=== PATIENT | male | born 1995 | race Caucasian/White ===

== ENCOUNTER 2021-07-29 10:21 | Emergency (ER) | payer OTHER, SELFPAY ==
[2021-07-29 10:38] VITALS: BP 140/73; PULSE 80; RESP 18; TEMP 36.6; O2SAT 100
--- NOTE | 2021-07-29 11:09 | ED.LOWEXIN ---
HPI - Extremity Injury (Lower) General Chief Complaint: Extremity Injury, Lower Stated Complaint: lt great toe injury Source: patient and RN notes reviewed Limitations: no limitations History of Present Illness HPI Narrative: The patient, previously on several mood meds, presents with left great toe pain. Patient states he has 1/2-week history of increasing redness at the nail fold insertion after cutting on it. Symptoms are mild, worse when he stubbed his toe last night. No fever, discharge, streaking; patient advised to be given antibiotics and to soak and elevate the nail [per handouts] Related Data Home Medications Medication Instructions Recorded Confirmed methylphenidate HCl 54 mg PO QAM 08/02/19 07/29/21 oxcarbazepine 300 mg PO DAILY 08/02/19 07/29/21 guanfacine 1 mg tablet 1 mg PO BID tablet 10/14/19 07/29/21 lamotrigine 200 mg tablet 200 mg PO .qhs tablet 05/03/20 07/29/21 Allergies Allergy/AdvReac Type Severity Reaction Status Date / Time No Known Allergies Allergy Verified 07/29/21 10:40 Review of Systems Review of Systems: General/Constitutional: No weight loss,fever Eyes: N0: Redness,discharge Ears/Nose/Throat: No: Epistaxis,ear discharge Respiratory: Denies: Hemoptysis Gastrointestinal: No Vomiting, Bleeding-rectal Skin: No Lumps, REPORTS eruption Neurologic: No Focal Weakness,Sz Hematologic: Denies: Petechiae/Purpura Psychiatric: No: Suicida ideationl All Other Systems: Reviewed and Negative [facility] Social History Social History (Updated 04/05/21 @ 14:[address] [facility]) Alcohol intake: never Comments At time of signature, agree with nursing past medical, surgical, social and family history. There is no relevant family history pertinent to the presenting complaint Exam Narrative: General Appearance: Well appearing, Conjunctiva clear Ears: External ear normal, Auditory canal normal Nose: Normal nose, Nares clear Mouth/Throat: Normal appearing, Normal lips, Supple Respiratory: Airway patent, No respiratory distress MS-toe: Normal strength (mostly intact, limited flexion/extension by pain), Tenderness ( laterally, with mild decreased ROM), Swelling (laterally), Other (no anterior drawer, no collateral laxity) Skin: Warm, Dry, redness at nailbed fold Neurological: A&O x3, Normal affect Course Vital Signs Vital signs: Vital Signs Temperature 97.8 F 07/29/21 10:38 Pulse Rate 80 07/29/21 10:38 Respiratory Rate 18 07/29/21 10:38 Blood Pressure 140/73 07/29/21 10:38 Pulse Oximetry 100 07/29/21 10:38 Temperature 97.8 F 07/29/21 10:38 Pulse Rate 80 07/29/21 10:38 Respiratory Rate 18 07/29/21 10:38 Blood Pressure 140/73 07/29/21 10:38 Pulse Oximetry 100 07/29/21 10:38 Discharge Plan Discharge Clinical Impression: Paronychia of toenail of left foot, Ingrowing toenail of left foot Patient Disposition: Home, Self-Care Condition: Stable Instructions: Antibiotic Form, Paronychia (ED) Additional Instructions: Take clindamycin with antacid, probiotic and/or food ; stop if diarrhea occurs Prescriptions: New clindamycin HCl 300 mg capsule 300 mg PO TID Qty: 15 RF: 0 mupirocin 2 % ointment 1 applic TOPICAL TID Qty: 30 RF: 0 No Action methylphenidate HCl 54 mg Tablet Extended Release 24hr 54 mg PO QAM RF: 0 oxcarbazepine 300 mg Tablet Extended Release 24 Hr 300 mg PO DAILY RF: 0 guanfacine 1 mg tablet 1 mg PO BID RF: 0 lamotrigine 200 mg tablet 200 mg PO .qhs RF: 0 Follow-up/Referrals: Rudy Mcdowell MD [Primary Care Provider] -
== END 2021-07-29 11:15 | disposition home or self-care (01) ==
PROVIDERS: Emergency Provider Emergency Medicine; PCP Family Medicine
DX: L03.032 Cellulitis of left toe (principal); L60.0 Ingrowing nail
CPT/HCPCS: 99213; G0463

== ENCOUNTER 2021-09-10 12:53 | Outpatient (CLI) | payer OTHER, SELFPAY ==
--- NOTE | ~2021-09-10 | XR_ITS ---
XR shoulder RT min 2V DATE: 09/10/2021 13:17 INDICATION: Dislocation TECHNIQUE: 4 views COMPARISON: None FINDINGS: No fracture or dislocation, periosteal reaction or bone destruction or abnormal soft tissue calcification IMPRESSION: Negative Reviewed, dictated and finalized at location A. DUSTER IMPRESSION: Negative
== END 2021-09-10 12:54 | disposition home or self-care (01) ==
LOC: ANHIMG 12:58
PROVIDERS: PCP Family Medicine; Visit Provider Family Medicine
DX: S43.006A Unspecified dislocation of unspecified shoulder joint, initial encounter (principal); X58.XXXA Exposure to other specified factors, initial encounter
CPT/HCPCS: 73030

== ENCOUNTER 2021-10-14 11:00 | Outpatient (RCR) | payer OTHER, SELFPAY ==
--- NOTE | 2021-09-16 13:37 | PTOPEVAL ---
Thank you for referring Linwood Cade to [facility].? The patient is scheduled to be seen for therapy? 1 x/week for 8 weeks. Please review, sign, date and return this plan of care AMRITA. I agree with and certify that the following plan of care is medically necessary. Referring Physician Date Attending Provider: Augustin Vargas MD Diagnosis right shoulder instability. Onset chronic Additional Evaluation Detail studying EMR course. 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 Subjective Information He had increased pain with Query Text:As Reported By Patient/ lifting heavy objects. He c/o Family instability of the shoulder and feeling of the shoulder sliding out of socket. He has had the issue for 10 years. He denies any sports or resistance training in the past. He spends most of his day reading, watching TV, playing video games. He did go to the gym prior to Apr 13. Pain Assessment Right Shoulder(s) Reported Pain Level 0 Lowest Pain Intensity 0 Greatest Pain Intensity 2 Pain Aggravating Factors Lifting Upper Extremity Range of Motion General Upper Extremity Range of Motion Reason Not Measured WNL/Left,WNL/Right Scapular/ Shoulder Range of Motion Right Reason Not Measured WNL/Right Shoulder Medial Rotation - Active T6:Reach Behind the Back Shoulder Lateral Rotation - Active T3:Reach Behind the Head Upper Extremity Muscle Strength Testing General Upper Extremity Strength Gross Upper Extremity Strength Comments grossly 5/5 annette shoulder except right shoulder flex: 4/ 5, ext rotation: 4/5, abd: 4+/ 5 middle 3-/5 and lower trap scap stability: 2+/5 serratus ant: 3-/5 Muscle Length Testing Muscle Length Testing Latissmus Dorsi Muscle Length (R) Moderate Tightness,(L) Moderate Tightness Pectoralis Major Muscle Length (R) Moderate Tightness,(L) Moderate Tightness Pectoralis Minor Muscle Length (R) Severe Tightness,(L) Severe Tightness Posture Standing Position Head/C-Spine Posture Forward Head Thoracic Spine Posture Flattened Lumbar Spine Posture Flattened Shoulder Posture (L) Rounded,(R) Rounded,(L) Forward,(R) Forward Scapula Posture
--- NOTE | 2021-09-26 13:39 | PCPTNOTE ---
Patient did not show up for scheduled appointment this date. Called patient and he stated he called this morning to cancel, but the message said we were closed.
--- NOTE | 2021-10-14 11:58 | PTOPEVAL ---
Physical Therapy Discharge Summary Thank you for referring Linwood Cade to [facility].?Linwood has attended 4 therapy visits with 1 missed visit to address his chronic shoulder limitations. He demonstrates compliance with his HEP and demonstrates understanding of strengthening program and proper posture with daily task and resistance training. He has reached maximal potential with skilled therapy services at this time. Will DC skilled PT services. Please review, sign, date and return this discharge summary AMRITA. I agree with and certify that the following plan of care is medically necessary. Referring Physician Date Attending Provider: Augustin Vargas MD Problem Diagnosis right shoulder instability. Onset chronic Additional Evaluation Detail studying EMR course. 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 Subjective Information States he continues to have Query Text:As Reported By Patient/ difficulty with reading for Family class due to continued poor posture. Denies any increased pain with sleeping on right side. Denies any limitation with lifting heavy objects. He has been able to lift weights at the gym without limitations. His only increased pain occurs when lifting poorly. Pain Assessment Self Report Pain Assessment Right Shoulder(s) Reported Pain Level 0 Lowest Pain Intensity 0 Greatest Pain Intensity 1 Pain Aggravating Factors Lifting Upper Extremity Muscle Strength Testing General Upper Extremity Strength Gross Upper Extremity Strength Comments grossly 5/5 annette shoulder except right shoulder flex: 4/ 5, ext rotation: 4+/5, abd: 4+ /5 no pain with resistance, poor GH/scap position with resistance. middle 3+/5 and lower trap scap stability: 3+/5, serratus ant: 3+/5 Posture Standing Position Head/C-Spine Posture Forward Head Thoracic Spine Posture Flattened Lumbar Spine Posture Flattened Shoulder Posture (L) Rounded,(R) Rounded,(L) Forward,(R) Forward Scapula Posture (L) Protracted,(R) Protracted, (L) Depressed,(R) Depressed,(L ) Tipped,(R) Tipped Arm Posture (L) Internally Rotated,(R) Internally Rotated PT Clinical Summary Pt referred to therapy due to
== END 2021-10-14 16:49 | disposition home or self-care (01) ==
LOC: ANHPT 11:00
PROVIDERS: PCP Family Medicine; Visit Provider Orthopaedic Surgery
DX: M25.511 Pain in right shoulder (principal)
CPT/HCPCS: 97110; 97161

== ENCOUNTER 2021-12-20 11:37 | Emergency (ER) | payer OTHER, SELFPAY ==
--- NOTE | ~2021-12-20 | XR_ITS ---
EXAMINATION: XR chest 2V DATE: 12/20/2021 13:06 INDICATION: Chest pain TECHNIQUE: PA and lateral views of the chest are obtained. COMPARISON: 12/24/2011 FINDINGS: The lungs are free of acute opacities. There is no pleural effusion or pneumothorax. The ca rdiomediastinal silhouette is normal. The visualized bones and soft tissues are unremarkable. IMPRESSION: 1. No acute cardiopulmonary abnormality. Reviewed, dictated and finalized at location B.
[2021-12-20 12:16] VITALS: BP 127/84; PULSE 97; RESP 18; TEMP 36.6; O2SAT 100
--- NOTE | 2021-12-20 12:26 | ECG_ITS ---
Measurements Intervals [place] Rate: 87 P: 46 AR: 172 QRS: 60 QRSD: 106 T: 29 QT: 318 QTc: 384 Interpretive Statements SINUS RHYTHM POSSIBLE RIGHT VENTRICULAR CONDUCTION DELAY [RSR (QR) IN V1/V2] BORDERLINE ECG NO PREVIOUS ECG AVAILABLE FOR COMPARISON Electronically Signed On 12-20-2021 12:53:39 CDT by Sushant Ruby M.D.
--- NOTE | 2021-12-20 12:50 | ED.CHESTPAIN ---
HPI - Chest Pain General Chief Complaint: Chest Pain Stated Complaint: chest pain Source: patient Mode of arrival: ambulatory Limitations: no limitations History of Present Illness HPI narrative: 26-year-old male presents to [facility] with complaints of right upper chest pains with inspiration for the past hour; patient reports that he also has intermittent shortness of breath. Patient is a non-smoker. Patient reports his pain a current 3 out of 10. Patient describes the pain as sharp. Patient denies headache, dizziness, blurred vision. MD complaint: chest pain Onset (ago): hour(s) (3) Pain location: right chest Pain radiation: none Quality: sharp Treatment prior to arrival: none Related Data Home Medications Medication Instructions Recorded Confirmed methylphenidate HCl 54 mg PO QAM 08/02/19 12/20/21 oxcarbazepine 300 mg PO DAILY 08/02/19 12/20/21 guanfacine 1 mg tablet 1 mg PO BID tablet 10/14/19 12/20/21 lamotrigine 200 mg tablet 200 mg PO .qhs tablet 05/03/20 12/20/21 Allergies Allergy/AdvReac Type Severity Reaction Status Date / Time No Known Allergies Allergy Verified 12/20/21 12:34 Review of Systems Constitutional: Constitutional: Denies chills, Denies fever(s) and Denies weakness ENT: Denies epistaxis and Denies sore throat Cardiovascular: Cardiovascular: Reports chest pain, Denies rapid heart rate, Denies radiating jaw, neck or arm pain and Denies slow heart rate Respiratory: Respiratory: Denies chest congestion, Denies cough, Denies dyspnea and Denies wheezing Gastrointestinal: Gastrointestinal: Denies abdominal pain, Denies diarrhea, Denies nausea and Denies vomiting Integumentary/Breasts: Skin/Breast: Denies rash Neurologic: Denies dizziness PMF Past Medical History Medical History Asthma 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 There is no relevant family history pertinent to the presenting complaint. Exam Const: General: no acute distress Nutritional Appearance: well nourished Orientation/consciousness: patient oriented x3 Neck: Neck: normal visual inspection Chest: Chest palpation & inspection: normal inspection of the chest Resp: Effort & Inspection: normal respiratory effort, not labored and not tachypneic Auscultation: clear to auscultation bilaterally Cardio: Rate: regular rate, not bradycardic and not tachycardic Rhythm: regular rhythm and regular rhythm Heart sounds: no murmurs Skin: General skin exam: normal color Rashes: no rashes Wounds: no wounds Neuro: General: patient oriented x3 and moves all extremities Speech: normal speech Psych: Mental Status: mental status grossly normal Affect: normal affect Attitude: cooperative Thought content: Yes Normal thought content present Course Course Level of Care: Express Care Visit Vital Signs Vital signs: Vital Signs Temperature 36.6 C 12/20/21 12:16 Pulse Rate 97 12/20/21 12:16 Respiratory Rate 18 12/20/21 12:16 Blood Pressure 127/84 12/20/21 12:16 Pulse Oximetry 100 12/20/21 12:16 Temperature 36.6 C 12/20/21 12:16 Pulse Rate 97 12/20/21 12:16 Respiratory Rate 18 12/20/21 12:16 Blood Pressure 127/84 12/20/21 12:16 Pulse Oximetry 100 12/20/21 12:16 MDM - Chest Pain MDM Narrative Medical decision making narrative: Due to symptoms, patient was referred to local emergency room for cardiac evaluation and further work-up. Patient refuses ER evaluation at this time reports that he has a upcoming appointment with his primary care provider. Risks of not going emergency august
== END 2021-12-20 13:18 | disposition left against medical advice (07) ==
PROVIDERS: Emergency Provider Nurse Practitioner Family; PCP Family Medicine
DX: R07.1 Chest pain on breathing (principal)
CPT/HCPCS: 71046; 93005; 99213; G0463

== ENCOUNTER 2022-05-11 10:46 | Emergency (ER) | payer OTHER, SELFPAY ==
[2022-05-11 10:58] VITALS: BP 135/92; PULSE 91; RESP 18; TEMP 36.3; O2SAT 100
--- NOTE | 2022-05-11 11:29 | ED.URI ---
HPI - URI/Sore Throat General Chief Complaint: Upper Respiratory Infection Stated Complaint: cold symptoms Source: patient History of Present Illness HPI Narrative: 27-year-old male presents to [facility] with complaints of 1 to 2-month history of sinus pressure. Patient reports he then started with sore throat, nasal congestion, runny nose for the past 4 to 5 days. Patient has been taking [id number] Mucinex, Sudafed and NyQuil with minimal relief. Patient is a non-smoker. Patient denies sick contacts. Patient denies recent travel. Patient reports that he felt like he had a fever yesterday but not check his temperature at that time MD elicited complaint: sore throat, rhinorrhea, nasal congestion and sinus pain Onset (ago): day(s) (4) Able to tolerate fluids by mouth: Yes Treatments prior to arrival: cold medicine Related Data Home Medications Medication Instructions Recorded Confirmed methylphenidate HCl 54 mg 54 mg PO QAM 08/02/19 05/11/22 tablet,extended release 24 hr oxcarbazepine 300 mg 300 mg PO DAILY 08/02/19 05/11/22 tablet,extended release 24 hr guanfacine 1 mg tablet 1 mg PO BID 10/14/19 05/11/22 lamotrigine 200 mg tablet 200 mg PO .qhs 05/03/20 05/11/22 Allergies Allergy/AdvReac Type Severity Reaction Status Date / Time No Known Allergies Allergy Verified 05/11/22 11:23 Review of Systems Constitutional: Constitutional: Denies chills, Denies fatigue and Reports fever(s) ENT: Denies vertigo, Denies dizziness and Reports sore throat Comments: Nasal congestion, runny nose, sinus pressure Cardiovascular: Cardiovascular: Denies chest pain Respiratory: Respiratory: Denies chest congestion, Denies cough, Denies dyspnea and Denies wheezing Integumentary/Breasts: Skin/Breast: Denies rash Neurologic: Denies vertigo and Denies dizziness PMF Past Medical History Medical History Asthma 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 There is no relevant family history pertinent to the presenting complaint. Exam Const: General: healthy appearing Nutritional Appearance: well nourished Orientation/consciousness: patient oriented x3 Limitations: no limitations HENMT: Ears: external ears normal General nose exam: Normal external nose present Face and sinus: sinus tenderness frontal Mouth: Yes Normal oral and palatal mucosa present and Yes lip normal Throat: posterior oropharynx normal and uvula midline Other: Moderate amount of nasal congestion noted with minimal amount of clear nasal drainage noted. Eyes: Conjunctivae: conjunctivae normal Neck: Neck: normal visual inspection Resp: Effort & Inspection: normal respiratory effort and not labored Auscultation: clear to auscultation bilaterally and no crackles Cardio: Rate: regular rate Rhythm: regular rhythm Heart sounds: no murmurs Skin: General skin exam: normal color Rashes: no rashes Wounds: no wounds Neuro: General: patient oriented x3 Speech: normal speech Gait exam (Neuro): Normal gait present Psych: Mental Status: mental status grossly normal Affect: normal affect Attitude: cooperative Course Course Level of Care: Express Care Visit Vital Signs Vital signs: Vital Signs Temperature 36.3 C L 05/11/22 10:58 Pulse Rate 91 05/11/22 10:58 Respiratory Rate 18 05/11/22 10:58 Blood Pressure 135/92 H 05/11/22 10:58 Pulse Oximetry 100 05/11/22 10:58 Oxygen Delivery Room Air 05/11/22 10:58 Temperature 36.3 C L 05/11/22 10:58 Pulse Rate 91 05/11/22 10:58 Respiratory Rate 18 05/11/22 10:58 Blood
== END 2022-05-11 11:45 | disposition home or self-care (01) ==
PROVIDERS: Emergency Provider Nurse Practitioner Family; PCP Family Medicine
DX: J32.9 Chronic sinusitis, unspecified (principal); J45.909 Unspecified asthma, uncomplicated
CPT/HCPCS: 87081; 87880; 99213; G0463

== ENCOUNTER 2022-06-18 11:52 | Emergency (ER) | payer OTHER, SELFPAY ==
[2022-06-18 12:05] VITALS: BP 147/87; PULSE 81; RESP 18; TEMP 36.7; O2SAT 100
--- NOTE | 2022-06-18 14:21 | ED.URI ---
HPI - URI/Sore Throat General Chief Complaint: Upper Respiratory Infection Stated Complaint: Headache Source: patient Mode of arrival: ambulatory History of Present Illness HPI Narrative: This is a 27-year-old male who presented to urgent care with complaints of a headache and fever that started on Thursday patient notes that he took Tylenol for his fever. He notes that today he felt fevers and took his temperature was 99.9? he also notes that he felt dizzy but he relates that his vertigo. Patient notes that when he is ill he develops dizziness vertigo The patient denies SOB, CP, palpitation, extremity numbness, lightheadedness, constipation, diarrhea, chills, Related Data Allergies Allergy/AdvReac Type Severity Reaction Status Date / Time No Known Allergies Allergy Verified 06/18/22 13:12 Review of Systems Review of Systems: A 14 organ system Review of Systems was performed and pertinent positives included in the HPI, otherwise remaining ROS is negative. 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 HEAD: normocephalic, atraumatic. EYES: PERRL. Sclera clear/white. Vision is grossly intact. EARS: External ears normal, auditory canals clear and without drainage, TMs normal without perforation. Hearing grossly intact. NOSE: External nose normal with no obvious nasal discharge, nares without redness, no rhinorrhea. THROAT: Mucous membranes moist, posterior pharynx edematous with erythema white patches and tonsil enlargement with stones. NECK: Neck supple, non-tender without lymphadenopathy, masses or thyromegaly. CARDIOVASCULAR: Regular rate and rhythm without murmurs, gallops, or rubs. RESPIRATORY: Clear to auscultation. Breath sounds equal bilaterally. No wheezes, rales, or rhonchi. GASTROINTESTINAL: Abdomen soft, non-tender, nondistended. Bowel sounds are active. No hepato-splenomegaly, or palpable masses. No guarding. SKIN: warm, intact with no suspicious lesions or rash, good texture and turgor. NEURO: awake, alert, and oriented to person, place and time. There were no obvious focal neurologic abnormalities. EXTREMITIES: Normal range of motion. No edema. No calf tenderness. Course Course Emergency Course: Patient treated for pharyngitis with Augmentin Level of Care: Express Care Visit Vital Signs Vital signs: Vital Signs Temperature 98.0 F 06/18/22 12:05 Pulse Rate 81 06/18/22 12:05 Respiratory Rate 18 06/18/22 12:05 Blood Pressure 147/87 H 06/18/22 12:05 Pulse Oximetry 100 06/18/22 12:05 Oxygen Delivery Room Air 06/18/22 12:05 Temperature 98.0 F 06/18/22 12:05 Pulse Rate 81 06/18/22 12:05 Respiratory Rate 18 06/18/22 12:05 Blood Pressure 147/87 H 06/18/22 12:05 Pulse Oximetry 100 06/18/22 12:05 Oxygen Delivery Room Air 06/18/22 12:05 MDM - URI/Sore Throat Lab Data Labs: Lab Results 06/18/22 Range/Units 13:20 POC SARS CoV-2 Ag Negative (Negative) Influenza A Screen Negative Reference Range: Negative Influenza B Screen Negative Reference Range: Negative Strep Screen Presumptive Negative *(Reference Range: Negative)* Discharge Plan Discharge Clinical Impression: Pharyngitis Patient Disposition: Home, Self-Care Condition: Stable Instructions: Antibiotic Form, Pharyngitis (ED) Additional Instructions: Follow-up
== END 2022-06-18 14:30 | disposition home or self-care (01) ==
PROVIDERS: Emergency Provider Nurse Practitioner; PCP Family Medicine
DX: J02.9 Acute pharyngitis, unspecified (principal); Z20.822 Contact with and (suspected) exposure to COVID-19; J45.909 Unspecified asthma, uncomplicated
CPT/HCPCS: 87081; 87426; 87804; 87880; 99213; C9803; G0463

== ENCOUNTER 2022-08-16 10:54 | Emergency (ER) | payer OTHER, SELFPAY ==
--- NOTE | 2022-08-16 10:58 | ED.URI ---
HPI - URI/Sore Throat General Chief Complaint: Upper Respiratory Infection Stated Complaint: Cough,Congestion,Sore Throat Time Seen by Provider: 08/16/22 11:52 Source: patient and RN notes reviewed Mode of arrival: ambulatory Limitations: no limitations History of Present Illness HPI Narrative: 47-year-old male presents with concern for 7 day history of cough. He reports he is exposed influenza, several days later he began having symptoms which include fever. Reports was is symptoms are improving. The cough seems to be getting worse. Reports he has been taking multiple [id number] medications without relief MD elicited complaint: cough Related Data Home Medications Medication Instructions Recorded Confirmed guanfacine 1 mg tablet 1 mg PO DAILY 06/18/22 07/08/22 methylphenidate HCl 54 mg 54 mg PO DAILY 06/18/22 08/16/22 tablet,extended release 24 hr oxcarbazepine 300 mg tablet 300 mg PO DAILY 06/18/22 08/16/22 lamotrigine 200 mg tablet 200 mg PO DAILY 07/03/22 08/16/22 Allergies Allergy/AdvReac Type Severity Reaction Status Date / Time No Known Allergies Allergy Verified 07/07/22 15:31 Review of Systems Review of Systems: CONSTITUTIONAL: Denies malaise, chills, sweats, or fever. EYES: Denies visual changes, redness, or discharge. ENT: Reports rhinorrhea, congestion. Denies sinus pain, otalgia and sore throat. CARDIOVASCULAR: Denies chest pain, palpitations, or edema. RESPIRATORY: Reports persistent cough. Denies dyspnea. GASTROINTESTINAL: Denies abdominal pain, nausea, vomiting, diarrhea SKIN: Denies rash or itching. MUSCULOSKELETAL: Denies myalgia. NEUROLOGIC: Denies headache. 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 There is no relevant family history pertinent to the presenting complaint Exam Narrative: GENERAL: Well-appearing, well-nourished, and in no acute distress. HEAD: Normocephalic EYES: PERRLA, conjunctivae clear ENT: Nares clear, turbinates edematous and erythematous, clear discharge. Mucous membranes moist. TM pearly guadalupe with sharp light reflex bilaterally; no tragal tenderness. Oropharynx not erythematous without lesions. Tonsils not enlarged and without exudate, no drooling, no hoarseness, no trismus, uvula midline. NECK: Supple. No lymphadenopathy CHEST: Clear to auscultation, breath sounds equal. No wheezing, rhonchi, rales, or stridor. No respiratory distress, speaks in full sentences. HEART: Regular rate and rhythm. No murmur heard. SKIN: Warm, dry, no rash. NEURO: Alert and oriented x3. PSYCH: Normal mood and affect Course Course Emergency Course: Patient is aware of diagnosis, understands and agrees to treatment plan. Anticipatory guidance given. Patient agrees to follow-up as directed and is aware of reasons to seek care at the emergency department. Portions of this record may have been created with voice recognition software Level of Care: Express Care Visit Vital Signs Vital signs: Reviewed. MDM - URI/Sore Throat MDM Narrative Medical decision making narrative: Differential diagnosis considered: Vasquez virus, strep pharyngitis, allergic rhinitis, upper respiratory tract infection, sinusitis, rhinosinusitis, nasopharyngitis. viral pharyngitis, otitis media, otitis externa, pneumonia, bronchitis, viral cough syndrome, viral syndrome, and influenza. Exam findings show no acute concerns or changes; patient is non-toxic appearing and is in no distres
[2022-08-16 11:08] VITALS: BP 130/82; PULSE 82; RESP 18; TEMP 36.4; O2SAT 100
== END 2022-08-16 12:09 | disposition home or self-care (01) ==
PROVIDERS: Emergency Provider Nurse Practitioner; PCP Family Medicine
DX: J40 Bronchitis, not specified as acute or chronic (principal); J45.909 Unspecified asthma, uncomplicated
CPT/HCPCS: 99213; G0463

== ENCOUNTER 2023-08-22 09:19 | Emergency (ER) | payer OTHER, SELFPAY ==
[2023-08-22 09:29] VITALS: BP 138/82; PULSE 100; RESP 16; TEMP 36.6; O2SAT 100
--- NOTE | 2023-08-22 09:57 | ED.URI ---
HPI - URI/Sore Throat General Chief Complaint: Upper Respiratory Infection Stated Complaint: sore throat Time Seen by Provider: 08/22/23 09:47 Source: patient and RN notes reviewed Mode of arrival: ambulatory Limitations: no limitations History of Present Illness HPI Narrative: Patient presents today complaining sore and scratchy throat since last night with postnasal drip x2 months. Denies any additional symptoms. Currently rates pain 2/10 and has been using cough drops with mild relief. States he was on amoxicillin starting July 31, but cannot say what was for. Related Data Home Medications Medication Instructions Recorded Confirmed guanfacine 1 mg tablet 1 mg PO DAILY 06/18/22 08/22/23 methylphenidate HCl 54 mg 54 mg PO DAILY 06/18/22 08/22/23 tablet,extended release 24 hr oxcarbazepine 300 mg tablet 300 mg PO DAILY 06/18/22 08/22/23 lamotrigine 200 mg tablet 200 mg PO DAILY 07/03/22 08/22/23 Allergies Allergy/AdvReac Type Severity Reaction Status Date / Time No Known Allergies Allergy Verified 08/22/23 09:31 Review of Systems Review of Systems: CONSTITUTIONAL: Denies body aches, fever, chills, or sweats. EYES: Denies visual changes, redness, or discharge. ENT: Denies rhinorrhea, congestion, or otalgia.+ sore throat, postnasal drip CARDIOVASCULAR: Denies chest pain, palpitations, or edema. RESPIRATORY: Denies cough or dyspnea. GASTROINTESTINAL: Denies abdominal pain, nausea, vomiting, or diarrhea. GENITOURINARY: Denies dysuria or hematuria. SKIN: Denies rash, itching, or wounds. MUSCULOSKELETAL: Denies back pain, joint pain, or myalgia. NEUROLOGIC: Denies headache, numbness, tingling, or weakness. PSYCH: Denies depression or anxiety. 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 Please see nursing chart for further information. There is no relevant family history pertinent to the presenting complaint Exam Narrative: GENERAL: Well-appearing, well-nourished, and in no acute distress. HEAD: Normocephalic, atraumatic. EYES: EOMI. No redness or drainage. Conjunctivae normal. ENT: Mucous membranes pink and moist. Nares clear. No rhinorrhea. TMs normal bilaterally. Throat erythematous posteriorly without edema or exudate. Uvula midline. NECK: Normal AROM. Supple. No lymphadenopathy. CHEST: No respiratory distress. Clear to auscultation. HEART: Regular rate and rhythm. No murmur appreciated. EXTREMITIES: Normal range of motion. No edema. SKIN: Warm, dry, no rash. Capillary refill normal. Normal skin turgor. NEURO: No focal deficits. Alert and oriented x3. Gait steady. PSYCH: Normal affect. No signs of depression or anxiety. Course Course Level of Care: Express Care Visit Vital Signs Vital signs: Vital Signs Temperature 97.9 F 08/22/23 09:29 Pulse Rate 100 08/22/23 09:29 Respiratory Rate 16 08/22/23 09:29 Blood Pressure 138/82 08/22/23 09:29 Pulse Oximetry 100 08/22/23 09:29 Oxygen Delivery Room Air 08/22/23 09:29 Temperature 97.9 F 08/22/23 09:29 Pulse Rate 100 08/22/23 09:29 Respiratory Rate 16 08/22/23 09:29 Blood Pressure 138/82 08/22/23 09:29 Pulse Oximetry 100 08/22/23 09:29 Oxygen Delivery Room Air 08/22/23 09:29 Reviewed MDM - URI/Sore Throat MDM Narrative Medical decision making narrative: Rapid strep negative. Culture pending. Symptoms likely viral. Discussed [id number] treatment and PCP follow-up. Anticipa
== END 2023-08-22 10:06 | disposition home or self-care (01) ==
PROVIDERS: Emergency Provider Nurse Practitioner; PCP Family Medicine
DX: J02.9 Acute pharyngitis, unspecified (principal); J45.909 Unspecified asthma, uncomplicated
CPT/HCPCS: 87081; 87880; 99213; G0463

== ENCOUNTER 2024-07-21 09:35 | Emergency (ER) | payer OTHER, SELFPAY ==
[2024-07-21 09:42] VITALS: BP 134/98; PULSE 89; RESP 18; TEMP 36.9; O2SAT 99
--- NOTE | 2024-07-21 09:48 | ED.URI ---
HPI - URI/Sore Throat General Chief Complaint: Upper Respiratory Infection Stated Complaint: sore throat Time Seen by Provider: 07/21/24 09:39 History of Present Illness HPI Narrative: 29-year-old male presents to the emergency department for sore throat since 3:00 a.m.. He reports redness and swelling to his throat. He has been using throat lozenges with some improvement. He reports nasal congestion. Denies fever, cough, shortness of breath, otalgia. Denies sick contacts. Related Data Home Medications Medication Instructions Recorded Confirmed guanfacine 1 mg tablet 1 mg PO DAILY 06/18/22 09/17/23 methylphenidate HCl 54 mg 54 mg PO DAILY 06/18/22 09/17/23 tablet,extended release 24 hr oxcarbazepine 300 mg tablet 300 mg PO DAILY 06/18/22 09/17/23 lamotrigine 200 mg tablet 200 mg PO DAILY 07/03/22 09/17/23 Allergies Allergy/AdvReac Type Severity Reaction Status Date / Time No Known Allergies Allergy Verified 07/21/24 09:37 Review of Systems Review of Systems: All systems reviewed & are unremarkable except as noted in HPI and below PMFSH Past Medical History Medical History Asthma 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 HEAD: Normocephalic, atraumatic. EYES: PERRLA and EOMI. ENT: Nares clear, no rhinorrhea or epistaxis. Mucous membranes moist. Erythema to posterior pharynx. No tonsillar hypertrophy or exudates. Uvula is midline. Patient is tolerating secretions, no trismus. Bilateral TMs are guadalupe nonbulging with normal canals. NECK: Supple. CHEST: Clear to auscultation. No respiratory distress. HEART: Regular rate and rhythm. No murmur heard. Normal peripheral pulses. EXTREMITIES: Normal range of motion. No edema. SKIN: Warm, dry, no rash. NEURO: No focal deficits. Alert and oriented x3 Course Vital Signs Vital signs: Vital Signs Temperature 98.5 F 07/21/24 09:42 Pulse Rate 89 07/21/24 09:42 Respiratory Rate 18 07/21/24 09:42 Blood Pressure 134/98 H 07/21/24 09:42 Pulse Oximetry 99 07/21/24 09:42 Oxygen Delivery Room Air 07/21/24 09:42 Temperature 98.5 F 07/21/24 09:42 Pulse Rate 89 07/21/24 09:42 Respiratory Rate 18 07/21/24 09:42 Blood Pressure 134/98 H 07/21/24 09:42 Pulse Oximetry 99 07/21/24 09:42 Oxygen Delivery Room Air 07/21/24 09:42 MDM - URI/Sore Throat MDM Narrative Medical decision making narrative: 29-year-old male presents emergency department for sore throat and nasal congestion since 3:00 a.m. this morning. Triage vitals with elevated blood pressure, otherwise unremarkable. He is afebrile nontoxic appearing. Exam is significant for erythema posterior pharynx. There is no tonsillar hypertrophy or exudates, uvula is midline. There is no trismus. No findings concerning for OUTPATIENT PHLEBOTOMIST. COVID, flu, RSV, strep and mono test are negative. Presentation consistent with viral pharyngitis. Patient was given IM Decadron and scripts were sent for ibuprofen. Encouraged increased fluid intake and close follow-up with PCP. Strict ED return precautions discussed. He is agreeable to plan verbalized understanding. Discharged in stable condition. Lab Data Labs: Lab Results 07/21/24 Range/Units 10:03 Monoscreen Negative (Negative) Influenza A (RT-PCR) Negative (Negative) Influenza B (RT-PCR) Negative (Negative) RSV (RT-PCR) Negative (Negative) SARS-CoV-2 RNA (RT-PCR) Negative (Negative) Group A Strep (PCR) Not detected (Negative) Discharge Plan Discharge Clinical Impression: Acute viral pharyngitis Patient Disposition: Home, Self-Care Condition: Stable Instructions: Antibiotic Form, Pharyngitis (ED) Additional Instructions: You were evaluated in the emergency department for a sore throat. COVID, flu, RSV, mono and strep are negative. Please take Tylenol ibuprofen as needed for pain. Drink plenty of fluids. Follow up with her primary care provider. Return to the emergency department if you develop a fever, difficulty swallowing or breathing, or other concerning symptoms. Prescriptions: New ibuprofen 800 mg tablet 800 mg PO TID PRN (Reason: pain) Qty: 20 0RF No Action methylphenidate HCl 54 mg tablet extended release 24hr 54 mg PO DAILY oxcarbazepine 300 mg tablet 300 mg PO DAILY guanfacine 1 mg tablet 1 mg PO DAILY lamotrigine 200 mg tablet 200 mg PO DAILY methylprednisolone [Medrol (Marshal)] 4 mg tablets,dose pack See Rx Instructions .ROUTE .COMPLEX Qty: 21 0RF Rx Instructions: orally per package directions fluticasone propionate [Flonase Allergy Relief] 50 mcg/actuation spray,suspension 2 spray intranasal DAILY Qty: 50 0RF Rx Instructions: administer into each nostril Follow-up/Referrals: Wendi Mondragon MD [Primary Care Provider] -
[2024-07-21 10:34] LABS: Strep Group A RT-PCR NOT DETECTED (Negative)
[2024-07-21 10:40] LABS: Monoscreen Negative (Negative); Negative Monotest Control Negative (Negative); Positive Monotest Control Positive (Positive)
[2024-07-21 10:45] LABS: Influenza A QL RT-PCR Negative (Negative); Influenza B QL RT-PCR Negative (Negative); RSV RNA, RT-PCR Negative (Negative); SARS-CoV-2 RNA PCR Negative (Negative)
[2024-07-21] MEDS: dexAMETHasone SOD PHOS INJ 10 MG/ML 1 ML VIAL IM (11:00)
== END 2024-07-21 11:12 | disposition home or self-care (01) ==
PROVIDERS: Emergency Provider Physician Assistant; PCP Family Medicine
DX: J02.9 Acute pharyngitis, unspecified (principal); Z20.822 Contact with and (suspected) exposure to COVID-19; J45.909 Unspecified asthma, uncomplicated
CPT/HCPCS: 36415; 86308; 87637; 87651; 96372; 99283; J1100

== ENCOUNTER 2024-10-09 10:36 | Emergency (ER) | payer OTHER, SELFPAY ==
--- NOTE | ~2024-10-09 | XR_ITS ---
CHEST RADIOGRAPH, PA AND LATERAL CLINICAL HISTORY: chest pain . COMPARISON: 12/20/2021 TECHNIQUE: PA and lateral views of the chest. FINDINGS The cardiomediastinal silhouette is unremarkable. The lungs are clear. Visualized osseous structures and soft tissues are unremarkable. IMPRESSION: No focal infiltrate or effusion. Reviewed, dictated and finalized at location A. RIAL EXPEDITOR
--- NOTE | 2024-10-09 10:38 | ECG_ITS ---
Test Date: 2024-10-09 10:51:02 Measurements Intervals [place] Rate: 82 P: 35 ND: 171 QRS: 52 QRSD: 98 T: 44 QT: 325 QTc: 381 Interpretive Statements SINUS RHYTHM INCOMPLETE RIGHT BUNDLE BRANCH BLOCK BASELINE ARTIFACT- I, II, III, AVR, AVL BORDERLINE ECG No previous ECG available for comparison Electronically Signed On 10-09-2024 15:33:02 [employer] BI DEVELOPER by Brandt Washburn D.O.
--- OUTSIDE RECORDS SUMMARY | 2024-10-09 10:39 | XMS_ITS | Continuity of Care Document ---
Author Organization 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 Name Role Phone Hellen Moore Unavailable Unavailable Procedures Procedure Date Office/outpatient Visit, Est Eye Exam, New Patient Advance Directives Directive Yes / No Effective Date File Name No Information Encounters Encounter Description Practice Location Reason(s) For Visit Diagnoses Date Provider Providers Copied on Encounter Office/outpat ient Visit, Est [facility], [address] [place] [address] [address], [place], [place], [id number], tel:[phone] [facility] No Information 9 Teresa Lobato [address] , [address], [place], [place], [facility], [place]. tel:[phone] [facility], [address] [place] [address] [address], [place], [place], [id number], tel:[phone] [facility] No Information 7 Teresa Macedo. [address] , [address], [place], [place], [facility], [place]. tel:[phone] Family History Family Member Type Diagnosis Age At Onset No Information Payers Payer name Insurance type Covered constitution party ID Authoriza tion(s) No Information Social History [...]
--- OUTSIDE RECORDS SUMMARY | 2024-10-09 10:39 | XMS_ITS | Referral Summary ---
Author Organization [facility] Address [address] [place] [address] Care Team Providers Care Armor Senior Sergeant Name Role Phone Unavailable Primary Care Provider Unavailabl e Source Comments [facility],non-owned Affiliates and Associated Physician Practices is amultiple site organization consisting of ambulatory clinics and hospital sitesin [place], [place], [place] and [place]. This disclosure is being madepursuant to the Care Everywhere program and may not contain all information available regarding this patient. Last updated 18.[facility] Trippeo Encounters Date Type Department Care Team Description 10/01/2024 Travel 10/01/2024 5:32 PM PRICING SPECIALIST - 10/01/2024 7:59 PM PRICING SPECIALIST Emergency [facility] - Emergency Room [address] [place] [address] [phone] Rico Chau MD Viral gastroenteritis (Primary Dx); Chest pain, musculoskeletal Discharge Disposition: Home or Self Care from Last 3 Months Allergies No known active allergies Medications * Be aware that medications may not be up to date on this document. Alwaysverify current medications with the patient. Medication Sig Dispensed Refills Start Date End Date Status guanfacine (TENEX) 1 MG tablet Take 1 Tab by mouth 2 times daily. 60 1 05/28/2009 Active Methylphenidate HCl (methylphenidate CR) 54 MG tablet Take 1 (one) tablet by mouth every morning Active OXcarbazepine (Trileptal) 300 MG tablet Take 1 (one) tablet by mouth at bedtime Active lamoTRIgine (LaMICtal) 200 MG tablet Take 1 (one) tablet by mouth 2 times daily 01/25/2024 Active ondansetron, disintegrating, (Zofran ODT) 4 MG tabletIndications :Nausea and Vomiting Take 1 (one) tablet by mouth every 8 hours as needed for Nausea/Vomiting Allow tablet to dissolve on the tongue Reasons: Nausea and Vomiting 12 tablet 10/01/2024 Active lamoTRIgine (LAMICTAL) 100 MG tablet Take 1 Tab by mouth 2 times daily. 60 1 05/28/2009 10/01/2024 Discontinued (List Clean-Up) fluoxetine (PROZAC) 20 MG capsule Take 1 Cap by mouth daily. 30 1 05/28/2009 10/01/2024 Discontinued (List Clean-Up) QUEtiapine XR 24hr (SEROQUEL XR) 150 MG tablet Take 1 Tab by mouth at bedtime. 30 1 05/28/2009 10/01/2024 Discontinued (List Clean-Up) Active Problems Problem Noted Date Diagnosed Date Attention deficit hyperactiv ity disorder (ADHD), predominantly inattentive type 01/25/2024 Overview (10/01/2024): Last Assessment & Plan: Condition: stable Source of diagnosis: Medication and Diagnosis confirmed from PCP record and currently active Follow up in: three months Autistic disorder 01/08/2021 Overview (10/01/2024): Last Assessment & Plan: Condition: stable Source of diagnosis: Diagnosis confirmed from PCP record and currently active Follow up in: three months Recurrent major depressive disorder, in full rem ission 01/08/2021 Overview (10/01/2024): Last Assessment & Plan: Condition: stable Source of diagnosis: Medication and Diagnosis confirmed from PCP record and currently active Follow up in: three months with Psychiatrist Social phobia 01/08/2021 Overview (10/01/2024): Last Assessment & Plan: Condition: stable Source of diagnosis: Diagnosis confirmed from PCP record and currently active and medication Follow up in: if symptoms worsen or fail to improve Immunizations Name Administration Dates Next Due TDAP (7yrs+) 06/05/2020 Social History Tobacco Use Types Packs/Day Years Used Date Smoking Tobacco: Never Smokeless Tobacco: Never Tobacco Cessation:Counseling Given: Not Answered Alcohol Use Standard Drinks/Week Comments Never 0 (1 standard drink = 0.6 oz pur e alcohol) Sex and Gender Information Value Date Recorded Sex Assigned at Not on file Gender Identity Not on file Sexual Orientation Not on file Last Filed Vital Signs Vital Sign Reading Time Taken Comments Blood Pressure 122/89 10/01/2024 7:57 PM PRICING SPECIALIST Pulse 82 10/01/2024 7:57 PM PRICING SPECIALIST Temperature 36.8 C (98.2 F) 10/01/2024 7:57 PM PRICING SPECIALIST Respiratory Rate 16 10/01/2024 7:57 PM PRICING SPECIALIST Oxygen Saturation 99% 10/01/2024 7:57 PM PRICING SPECIALIST Inhaled Oxygen Concentration - - Weight 99.8 kg (220 lb) 10/01/2024 5:34 PM PRICING SPECIALIST Height 182.9 cm (6') 10/01/2024 5:34 PM PRICING SPECIALIST Body Mass Index 29.84 10/01/2024 5:34 PM PRICING SPECIALIST Plan of Treatment Not on file Procedures Procedure Name Priority Date/Time Associated Diagnosis Comments XR CHEST 1VW PORTABLE STAT 10/01/2024 6:30 PM PRICING SPECIALIST Chest pain, musculoskeletal SARS-COV-2 (COVID-19) FLU A/B RSV PCR RAPID STAT 10/01/2024 6:11 PM PRICING SPECIALIST LIPASE BLOOD STAT 10/01/2024 5:51 PM PRICING SPECIALIST D-DIMER STAT 10/01/2024 5:51 PM PRICING SPECIALIST COMPREHENSIVE METABOLIC PANEL STAT 10/01/2024 5:51 PM PRICING SPECIALIST CBC W AUTO DIFFERENTIAL STAT 10/01/2024 5:51 PM PRICING SPECIALIST from Last 3 Months Results * XR CHEST 1VW PORTABLE (10/01/2024 6:30 PM PRICING SPECIALIST) Anatomical Region Laterality Modality Chest Radiographic Delmis ging Impressions 10/01/2024 7:05 PM PRICING SPECIALIST 1. No acute findings. INTERPRETING RADIOLOGIST: Eric Jeffers M.D. ELECTRONICALLY SIGNED BY: Eric Jeffers M.D. Clinical Administrator Initials: [facility] Clinical Administrator Time: 19:05 Clinical Administrator Date: 10/01/24 Signed Date/Time: 10/01/24 19:05 UNSIGNED TRANSCRIPTIONS ARE PRELIMINARY REPORTS AND DO NOT REPRESENT MEDICAL OR LEGAL DOCUMENTS. Narrative 10/01/2024 7:05 PM PRICING SPECIALIST EXAM: FRONTAL VIEW OF THE CHEST. HISTORY: Chest pain COMPARISON: None. FINDINGS: Cardiac silhouette is normal. No organized infiltrate/consolidation. No visible effusion or pneumothorax. No acute osseous abnormality. Procedure Note Eric Jeffers MD - 10/01/2024 EXAM: FRONTAL VIEW OF THE CHEST. HISTORY: Chest pain COMPARISON: None. FINDINGS: Cardiac silhouette is normal. No organized infiltrate/consolidation. No visible effusion or pneumothorax. No acute osseous abnormality. IMPRESSION 1. No acute findings. INTERPRETING RADIOLOGIST: Eric Jeffers M.D. ELECTRONICALLY SIGNED BY: Eric Jeffers M.D. Clinical Administrator Initials: [facility] Clinical Administrator Time: 19:05 Clinical Administrator Date: 10/01/24 Signed Date/Time: 10/01/24 19:05 UNSIGNED TRANSCRIPTIONS ARE PRELIMINARY REPORTS AND DO NOT REPRESENT MEDICAL OR LEGAL DOCUMENTS. Rico Chau MD DIAGNOSTIC IMAGING O RDERABLES * SARS-COV-2 (COVID-19) FLU A/B RSV PCR RAPID (10/01/2024 6:11 PM PRICING SPECIALIST) COVID-19 PCR Not detected Not detected 10/01/2024 6:50 PM PRICING SPECIALIST [facility] ([facility]) Influenza A PCR Not detected Not detected 10/01/2024 6:50 PM PRICING SPECIALIST [facility] ([facility]) Influenza B PCR Not detected Not detected 10/01/2024 6:50 PM PRICING SPECIALIST [facility] ([facility]) Respiratory Syncytial Virus PCR Not detected Not detected 10/01/2024 6:50 PM PRICING SPECIALIST [facility] ([facility]) Microbiology SPECIMEN FROM NASOPHARYNGEAL STRUCTURE / Unknown Collection / Unknown 10/01/2024 6:11 PM PRICING SPECIALIST 10/01/2024 6:11 PM PRICING SPECIALIST [facility] ([facility]) - 10/01/2024 6:50 PM PRICING SPECIALIST The [employer] Xpert Xpress SARS-COV-2 has been authorized by the Food and Drug administration (FDA) under an Emergency Use Authorization (EUA). This test has been validated in accordance with the FDA's guidance document Policy for Diagnostic Testing in Laboratories Certified to perform High Complexity Testing under CLIA prior to Emergency Use Authorization for Coronavirus Disease-2019 during the Public Health Emergency issued on October 22, 2019. FDA independent review of this validation is pending. This test is only authorized for the duration of time the declaration that circumstances exist justifying the authorization of emergency use of in vitro diagnostic tests for detection of SARS-COV-2 virus and/or diagnosis of COVID-19 infection under 564(b)(1)of the Act, 21 U.S.C. 360bbb-3 (b) (1), unless the authorization is terminated or revoked sooner. Rico Chau MD LAB - MICROBIOLOGY O RDERABLES [facility] ([facility]) [address] [place] [address], [facility] [phone] * D-DIMER (10/01/2024 5:51 PM PRICING SPECIALIST) D-Dimer quantitative 116.00 0.00 - 500.00 ng/mL 10/01/2024 6:38 PM PRICING SPECIALIST [facility] ([facility]) Blood BLOOD SPECIMEN / Unknown Venipuncture / Unknown 10/01/2024 5:51 PM PRICING SPECIALIST 10/01/2024 5:51 PM PRICING SPECIALIST Rico Chau MD LAB - COAGULATION OR DERABLES [facility] ([facility]) [address] [place] [address], [facility] [phone] * (ABNORMAL) CBC W AUTO DIFFERENTIAL (10/01/2024 5:51 PM PRICING SPECIALIST) Pathologist [facility] WBC 10.0 4.6 - 10.2 K/uL 10/01/2024 5:56 PM [facility] ([facility]) RBC 5.94 4.69 - 6.13 M/uL 10/01/2024 5:56 PM [facility] ([facility]) Hemoglobin 17.3 14.1 - 18.1 g/dL 10/01/2024 5:56 PM [facility] ([facility]) Hematocrit 49.7 43.5 - 53.7 % 10/01/2024 5:56 PM [facility] ([facility]) MCH 29.1 27.0 - 31.2 pg 10/01/2024 5:56 PM [facility] ([facility]) MCHC 34.8 31.8 - 35.4 g/dL 10/01/2024 5:56 PM [facility] ([facility]) MCV 83.7 80.0 - 97.0 fL 10/01/2024 5:56 PM [facility] ([facility]) RDW 11.9 11.6 - 14.8 % 10/01/2024 5:56 PM [facility] ([facility]) Platelet Count 286 142 - 424 K/uL 10/01/2024 5:56 PM [facility] ([facility]) Neutrophils Absolute 8.8(H) 2.5 - 8.0 K/uL 10/01/2024 5:56 PM [facility] ([facility]) Lymphocytes Absolute 0.3(L) 1.0 - 4.0 K/uL 10/01/2024 5:56 PM [facility] ([facility]) Monocytes Absolute 0.78(H) 0.10 - 0.70 K/uL 10/01/2024 5:56 PM [facility] ([facility]) Eosinophils Absolute 0.05 0.05 - 0.50 K/uL 10/01/2024 5:56 PM [facility] ([facility]) Basophils Absolute 0.04 0.03 - 0.10 K/uL 10/01/2024 5:56 PM [facility] ([facility]) Immature Granulocytes Absolute 0.0 0.0 - 0.3 X(10)3/uL 10/01/2024 5:56 PM [facility] ([facility]) Neutrophils % 87.8(H) 50.0 - 80.0 % 10/01/2024 5:56 PM [facility] ([facility]) Lymphocytes % 3.2(L) 25.0 - 50.0 % 10/01/2024 5:56 PM [facility] ([facility]) Monocytes % 7.80 2.00 - 10.00 % 10/01/2024 5:56 PM [facility] ([facility]) Eosinophils % 0.50 0.00 - 5.00 % 10/01/2024 5:56 PM [facility] ([facility]) Basophils % 0.40 0.00 - 2.00 % 10/01/2024 5:56 PM [facility] ([facility]) Immature Granulocytes % 0.3 0.0 - 0.4 % 10/01/2024 5:56 PM [facility] ([facility]) nRBC 0 /100 WBC's 10/01/2024 5:56 PM [facility]) nRBC Absolute 0 10/01/2024 5:56 PM [facility] ([facility]) RDW-SD 36.0 fL 10/01/2024 5:56 PM [facility]) Blood BLOOD SPECIMEN / Unknown Venipuncture / Unknown 10/01/2024 5:51 PM PRICING SPECIALIST 10/01/2024 5:51 PM [facility] ([facility]) - 10/01/2024 5:56 PM PRICING SPECIALIST Absolute Granulocyte (Gran #) is the same as the Absolute Neutrophilic Count (ANC) Rico Chau MD LAB - HEMATOLOGY ORD ERABLES [facility] ([facility]) [address] [place] [address], [facility] [phone] * (ABNORMAL) COMPREHENSIVE METABOLIC PANEL (10/01/2024 5:51 PM PRICING SPECIALIST) Pathologist [facility] Glucose 119(H) 70 - 105 mg/dL 10/01/2024 6:13 PM [facility] ([facility]) BUN 17 9 - 21 mg/dL 10/01/2024 6:13 PM [facility] ([facility]) Creatinine 1.2 0.7 - 1.3 mg/dL 10/01/2024 6:13 PM [facility] ([facility]) BUN/Creatinine Ratio 14 12 - 20 BN/CR 10/01/2024 6:13 PM [facility] ([facility]) Calcium 9.3 8.4 - 10.2 mg/dL 10/01/2024 6:13 PM [facility] ([facility]) Protein Total 8.2 6.4 - 8.3 g/dL 10/01/2024 6:13 PM [facility] ([facility]) albumin 4.6 3.5 - 5.2 g/dL 10/01/2024 6:13 PM [facility] ([facility]) Globulin Total 3.6 2.5 - 3.7 g/dL 10/01/2024 6:13 PM [facility] ([facility]) Albumin/Globuli n Ratio 1.3 1.1 - 2.2 g/dL 10/01/2024 6:13 PM [facility] ([facility]) Alkaline Phosphatse 68 40 - 150 U/L 10/01/2024 6:13 PM [facility] ([facility]) ALT 45 0 - 55 U/L 10/01/2024 6:13 PM [facility] ([facility]) AST 28 5 - 34 U/L 10/01/2024 6:13 PM [facility] ([facility]) Bilirubin Total 0.70 0.20 - 1.20 md/dL 10/01/2024 6:13 PM [facility] ([facility]) CO2 21(L) 22 - 29 mmol/L 10/01/2024 6:13 PM [facility] ([facility]) Sodium 138 136 - 145 mmol/L 10/01/2024 6:13 PM [facility] ([facility]) Chloride 106 98 - 107 mmol/L 10/01/2024 6:13 PM [facility] ([facility]) Potassium 5.0 3.5 - 5.1 mmol/L 10/01/2024 6:13 PM [facility] ([facility]) GFR 72 mL/min/1.7 3m2 10/01/2024 6:13 PM [facility] ([facility]) Blood BLOOD SPECIMEN / Unknown Venipuncture / Unknown 10/01/2024 5:51 PM PRICING SPECIALIST 10/01/2024 5:51 PM PRICING SPECIALIST Rico Chau MD LAB - CHEMISTRY NASREEN MCINTYRE [facility] ([facility]) [address] [place] [address], [facility] [phone] * LIPASE BLOOD (10/01/2024 5:51 PM PRICING SPECIALIST) Lipase 31.0 8.0 - 78.0 U/L 10/01/2024 6:13 PM [facility] ([facility]) Blood BLOOD SPECIMEN / Unknown Venipuncture / Unknown 10/01/2024 5:51 PM PRICING SPECIALIST 10/01/2024 5:51 PM PRICING SPECIALIST Rico Chau MD LAB - CHEMISTRY NASREEN MCINTYRE [facility] ([facility]) [address] [place] [address], [place] [phone] from Last 3 Months Administered Medications Advance Directives * Full Code (Latest Code Status on File) Date Activated Date Inactivated Comments 05/23/2009 5:38 PM 05/28/2009 11:28 PM
--- OUTSIDE RECORDS SUMMARY | 2024-10-09 10:39 | XMS_ITS | Clinical Summary ---
Author Organization [facility] Address [facility] [place] [address] Care Team Providers Care Whip Sawyer Name Role Phone Rudy Mcdowell MD Primary Care Provider [phone] Social History Tobacco Use Types Packs/Day Years Used Date Smoking Tobacco: Never Assessed Sex and Gender Information Value Date Recorded Sex Assigned at Not on file Legal Sex Male 8:24 PM CDT Gender Identity Not on file Sexual Orientation Not on file Plan of Treatment Health Maintenance Due Date Last Done Comments Annual Physical 02/03/1999 Hepatitis C 02/03/2014 DTaP, Tdap and Td Vaccines ( 1 - Tdap) 02/03/2015 Hepatitis B Vaccines (1 of 3 - 19+ 3-dose series) 02/03/2015 COVID-19 Vaccine (2023-2 5 season) 2024 Influenza Adult (#1) 2024 HPV Vaccines Aged Out No longer eligi ble based on patient's age to complete this topic Meningococcal B Vaccine Aged Out No l onger eligible based on patient's age to complete this topic Meningococcal Vaccine Aged Out No yoselyn lenard eligible based on patient's age to complete this topic Pneumococcal Vaccine: Pediat rics (0 to 5 Years) and At-Risk Patients (6 to 64 Years) Aged Out No longer eligible b ased on patient's age to complete this topic RSV Immunizations Under 20 Months Aged Out No longer eligible based on patient's age to complete this topic Care Teams Whip Sawyer Relationship Specialty Start Date End Date Rudy Mcdowell MD [address] [place] [address] PCP - General 04/07/15
--- OUTSIDE RECORDS SUMMARY | 2024-10-09 10:39 | XMS_ITS | Clinical Summary ---
Author Organization [facility] [employer] Address [address] 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 This disclosure is being madepursuant to the Care Everywhere program and may not contain all information available regarding this patient. Last updated 18.[facility] [employer] Allergies No known active allergies Medications * [...] if symptoms worsen or fail to improve Encounters Date Type Department Care Team Description 10/01/2024 5:32 PM BILLING ANALYST - 10/01/2024 7:59 PM BILLING ANALYST Emergency [facility] - Emergency Room [address] [place] [address] [phone] Rico Chau MD Viral gastroenteritis (Primary Dx); Chest pain, musculoskeletal Discharge Disposition: Home or Self Care 10/01/2024 Travel from Last 3 Months Immunizations Name Administration Dates Next Due TDAP (7yrs+) 06/05/2020 Family History Medical History Relation Name Comments Depression Father Drug Abuse Maternal Uncle Alcohol abuse Mother Relation Name Status Comments Father Maternal Uncle Mother Social History Tobacco Use Types Packs/Day Years [...] Comments Blood Pressure 122/89 10/01/2024 7:57 PM BILLING ANALYST Pulse 82 10/01/2024 7:57 PM BILLING ANALYST Temperature 36.8 C (98.2 F) 10/01/2024 7:57 PM BILLING ANALYST Respiratory Rate 16 10/01/2024 7:57 PM BILLING ANALYST Oxygen Saturation 99% 10/01/2024 7:57 PM BILLING ANALYST Inhaled Oxygen Concentration - - Weight 99.8 kg (220 lb) 10/01/2024 5:34 PM BILLING ANALYST Height 182.9 cm (6') 10/01/2024 5:34 PM BILLING ANALYST Body Mass Index 29.84 10/01/2024 5:34 PM BILLING ANALYST Plan of Treatment Health Maintenance Due Date Last Done Comments HIV SCREENING 02/03/2011 HEPATITIS C SCREENING 01/30/2014 HEPATITIS B VACCINE (1 of 3 - 19+ 3-dose series) 02/03/2015 COVID-19 VACCINE ( season) 2024 06/25/2022, 12/02/2021, 02/08/2021, Additional history exists INFLUENZA VACCINE (#1) 2024 06/25/2022, 2017 DEPRESSION SCREENING 08/24/2024 DTAP/TDAP/TD VACCINES (2 - Td or Tdap) 06/05/2030 06/05/2020 ZOSTER VACCINE (1 of 2) 02/03/2046 HIB VACCINE Aged Out No longer eligi ble based on patient's age to complete this topic HPV VACCINE Aged Out No longer eligi ble based on patient's age to complete this topic MENINGOCOCCAL (Group B) VACCINE Aged Out No longer eligible based on patient's age to complete this topic MENINGOCOCCAL VACCINE Aged Out No yoselyn lenard eligible based on patient's age to complete this topic PNEUMOCOCCAL VACCINE Aged Out No long er eligible based on patient's age to complete this topic Procedures Procedure Name Priority Date/Time Associated Diagnosis Comments XR CHEST 1VW PORTABLE STAT 10/01/2024 6:30 PM BILLING ANALYST Chest pain, musculoskeletal SARS-COV-2 (COVID-19) FLU A/B RSV PCR RAPID STAT 10/01/2024 6:11 PM BILLING ANALYST LIPASE BLOOD STAT 10/01/2024 5:51 PM BILLING ANALYST D-DIMER STAT 10/01/2024 5:51 PM BILLING ANALYST COMPREHENSIVE METABOLIC PANEL STAT 10/01/2024 5:51 PM BILLING ANALYST CBC W AUTO DIFFERENTIAL STAT 10/01/2024 5:51 PM BILLING ANALYST from Last 3 Months Results * XR CHEST 1VW PORTABLE (10/01/2024 6:30 PM BILLING ANALYST) Anatomical Region Laterality Modality Chest Radiographic Delmis ging Impressions 10/01/2024 7:05 PM BILLING ANALYST 1. No acute findings. INTERPRETING RADIOLOGIST: Eric Jeffers M.D. ELECTRONICALLY SIGNED BY: Eric Jeffers M.D. Senior Budget Analyst Initials: [facility] Senior Budget Analyst Time: 19:05 Senior Budget Analyst Date: 10/01/24 Signed Date/Time: 10/01/24 19:05 UNSIGNED TRANSCRIPTIONS ARE PRELIMINARY REPORTS AND DO NOT REPRESENT MEDICAL OR LEGAL DOCUMENTS. Narrative 10/01/2024 7:05 PM BILLING ANALYST EXAM: FRONTAL VIEW OF THE CHEST. HISTORY: [...] M.D. ELECTRONICALLY SIGNED BY: Eric Jeffers M.D. Senior Budget Analyst Initials: LC Senior Budget Analyst Time: 19:05 Senior Budget Analyst Date: 10/01/24 Signed Date/Time: 10/01/24 19:05 UNSIGNED TRANSCRIPTIONS ARE PRELIMINARY REPORTS AND DO NOT REPRESENT MEDICAL OR LEGAL DOCUMENTS. Rico Chau MD DIAGNOSTIC IMAGING O RDERABLES * SARS-COV-2 (COVID-19) FLU A/B RSV PCR RAPID (10/01/2024 6:11 PM BILLING ANALYST) COVID-19 PCR Not detected Not detected 10/01/2024 6:50 PM [facility] ([facility]) Influenza A PCR Not detected Not detected 10/01/2024 6:50 PM [facility] ([facility]) Influenza B PCR Not detected Not detected 10/01/2024 6:50 PM [facility] ([facility]) Respiratory Syncytial Virus PCR Not detected Not detected 10/01/2024 6:50 PM [facility] ([facility]) Microbiology SPECIMEN FROM NASOPHARYNGEAL STRUCTURE / Unknown Collection / Unknown 10/01/2024 6:11 PM BILLING ANALYST 10/01/2024 6:11 PM BILLING ANALYST [facility] ([facility]) - 10/01/2024 6:50 PM BILLING ANALYST The Cepheid Xpert Xpress SARS-COV-2 has been authorized by [...] Chau MD LAB - MICROBIOLOGY O RDERABLES Performing Organization Address [facility]/ZIP Co de Phone Number [facility] ([facility]) [address] [place] [address], [facility] [phone] * D-DIMER (10/01/2024 5:51 PM BILLING ANALYST) Pathologist [facility] D-Dimer quantitative 116.00 0.00 - 500.00 ng/mL 10/01/2024 6:38 PM [facility] ([facility]) Blood BLOOD SPECIMEN / Unknown Venipuncture / Unknown 10/01/2024 5:51 PM BILLING ANALYST 10/01/2024 5:51 PM BILLING ANALYST Rico Chau MD LAB - COAGULATION OR DERABLES Performing Organization Address [facility]/ZIP Co de Phone Number [facility]) [address] [place] [address], [facility] [phone] * (ABNORMAL) CBC W AUTO DIFFERENTIAL (10/01/2024 5:51 PM BILLING ANALYST) Pathologist [facility] WBC 10.0 4.6 - 10.2 K/uL 10/01/2024 5:56 PM [facility] ([facility]) RBC 5.94 4.69 - 6.13 M/uL 10/01/2024 5:56 PM [facility] ([facility]) Hemoglobin 17.3 14.1 - 18.1 g/dL 10/01/2024 5:56 PM [facility] ([facility]) Hematocrit 49.7 43.5 - 53.7 % 10/01/2024 5:56 PM [facility] ([facility]) MCH 29.1 27.0 - 31.2 pg 10/01/2024 5:56 PM [facility] ([facility]) MCHC 34.8 31.8 - 35.4 g/dL 10/01/2024 5:56 PM [facility] ([facility]) MCV 83.7 80.0 - 97.0 fL 10/01/2024 5:56 PM [facility] ([facility]) RDW 11.9 11.6 - 14.8 % 10/01/2024 5:56 PM [facility] ([facility]) Platelet Count 286 142 - 424 K/uL 10/01/2024 5:56 PM [facility] ([facility]) Neutrophils Absolute 8.8(H) 2.5 - 8.0 K/uL 10/01/2024 5:56 PM [facility] ([facility]) Lymphocytes Absolute 0.3(L) 1.0 - 4.0 K/uL 10/01/2024 5:56 PM [facility] ([facility]) Monocytes Absolute 0.78(H) 0.10 - 0.70 K/uL 10/01/2024 5:56 PM [facility] ([facility]) Eosinophils Absolute 0.05 0.05 - 0.50 K/uL 10/01/2024 5:56 PM [facility] ([facility]) Basophils Absolute 0.04 0.03 - 0.10 K/uL 10/01/2024 5:56 PM [facility] ([facility]) Immature Granulocytes Absolute 0.0 0.0 - 0.3 X(10)3/uL 10/01/2024 5:56 PM [facility] ([facility]) Neutrophils % 87.8(H) 50.0 - 80.0 % 10/01/2024 5:56 PM [facility] ([facility]) Lymphocytes % 3.2(L) 25.0 - 50.0 % 10/01/2024 5:56 PM [facility] ([facility]) Monocytes % 7.80 2.00 - 10.00 % 10/01/2024 5:56 PM [facility] ([facility]) Eosinophils % 0.50 0.00 - 5.00 % 10/01/2024 5:56 PM [facility] ([facility]) Basophils % 0.40 0.00 - 2.00 % 10/01/2024 5:56 PM [facility] ([facility]) Immature Granulocytes % 0.3 0.0 - 0.4 % 10/01/2024 5:56 PM [facility] ([facility]) nRBC 0 /100 WBC's 10/01/2024 5:56 PM [facility] ([facility]) nRBC Absolute 0 10/01/2024 5:56 PM [facility] ([facility]) RDW-SD 36.0 fL 10/01/2024 5:56 PM [facility] ([facility]) Blood BLOOD SPECIMEN / Unknown Venipuncture / Unknown 10/01/2024 5:51 PM BILLING ANALYST 10/01/2024 5:51 PM BILLING ANALYST [facility] ([facility]) - 10/01/2024 5:56 PM BILLING ANALYST Absolute Granulocyte (Gran #) is the same as the Absolute Neutrophilic Count (ANC) Rico Chau MD LAB - HEMATOLOGY ORD ERABLES [facility]) [address] [place], [place] [id number], [facility] [phone] * (ABNORMAL) COMPREHENSIVE METABOLIC PANEL (10/01/2024 5:51 PM BILLING ANALYST) Glucose 119(H) 70 - 105 mg/dL 10/01/2024 6:13 PM [facility] ([facility]) BUN 17 9 - 21 mg/dL 10/01/2024 6:13 PM [facility] ([facility]) Creatinine 1.2 0.7 - 1.3 mg/dL 10/01/2024 6:13 PM [facility] ([facility]) BUN/Creatinine Ratio 14 12 - 20 BN/CR 10/01/2024 6:13 PM [facility] ([facility]) Calcium 9.3 8.4 - 10.2 mg/dL 10/01/2024 6:13 PM [facility] ([facility]) Protein Total 8.2 6.4 - 8.3 g/dL 10/01/2024 6:13 PM [facility] ([facility]) albumin 4.6 3.5 - 5.2 g/dL 10/01/2024 6:13 PM [facility] ([facility]) Globulin Total 3.6 2.5 - 3.7 g/dL 10/01/2024 6:13 PM [facility] ([facility]) Albumin/Globuli n Ratio 1.3 1.1 - 2.2 g/dL 10/01/2024 6:13 PM [facility] ([facility]) Alkaline Phosphatse 68 40 - 150 U/L 10/01/2024 6:13 PM [facility] ([facility]) ALT 45 0 - 55 U/L 10/01/2024 6:13 PM [facility] ([facility]) AST 28 5 - 34 U/L 10/01/2024 6:13 PM [facility] ([facility]) Bilirubin Total 0.70 0.20 - 1.20 md/dL 10/01/2024 6:13 PM [facility] ([facility]) CO2 21(L) 22 - 29 mmol/L 10/01/2024 6:13 PM [facility] ([facility]) Sodium 138 136 - 145 mmol/L 10/01/2024 6:13 PM [facility] ([facility]) Chloride 106 98 - 107 mmol/L 10/01/2024 6:13 PM [facility] ([facility]) Potassium 5.0 3.5 - 5.1 mmol/L 10/01/2024 6:13 PM [facility] ([facility]) GFR 72 mL/min/1.7 3m2 10/01/2024 6:13 PM [facility] ([facility]) Blood BLOOD SPECIMEN / Unknown Venipuncture / Unknown 10/01/2024 5:51 PM BILLING ANALYST 10/01/2024 5:51 PM BILLING ANALYST Rico Chau MD LAB - CHEMISTRY NASREEN MCINTYRE [facility] ([facility]) [address] [place] [address], [facility] [phone] * LIPASE BLOOD (10/01/2024 5:51 PM BILLING ANALYST) Lipase 31.0 8.0 - 78.0 U/L 10/01/2024 6:13 PM BILLING ANALYST [facility] ([facility]) Blood BLOOD SPECIMEN / Unknown Venipuncture / Unknown 10/01/2024 5:51 PM BILLING ANALYST 10/01/2024 5:51 PM BILLING ANALYST Rico Chau MD LAB - CHEMISTRY NASREEN MCINTYRE [facility] ([facility]) [address] [place] [address], [facility] [phone] from Last 3 Months Advance Directives * Full Code (Latest Code Status on File) Date Activated Date Inactivated Comments 05/23/2009 5:38 PM 05/28/2009 11:28 PM
--- OUTSIDE RECORDS SUMMARY | 2024-10-09 10:39 | XMS_ITS | Patient Health Summary ---
Author Organization [facility] [employer] Address [address] [place] [address] Care Team Providers Care Frame Opener Name Role Phone Unavailable Primary Care Provider Unavailabl e Note from [facility],non-owned Affiliates and Associated Physician Practices is amultiple site organization consisting of ambulatory clinics and hospital sitesin [place], [place], [place] and [place]. This disclosure is being madepursuant to the Care Everywhere program and may not contain all information available regarding this patient. Last updated 18.[facility] [employer] Allergies No known active allergies Medications * Be aware that medications may not be up to date on this document. Alwaysverify current medications with the patient. * guanfacine (TENEX) 1 MG tablet(Started 05/28/2009) Take 1 Tab by mouth 2 times daily. 1 refill left * Methylphenidate HCl (methylphenidate CR) 54 MG tablet Take 1 (one) tablet by mouth every morning * OXcarbazepine (Trileptal) 300 MG tablet Take 1 (one) tablet by mouth at bedtime * lamoTRIgine (LaMICtal) 200 MG tablet(Started 01/25/2024) Take 1 (one) tablet by mouth 2 times daily * ondansetron, disintegrating, (Zofran ODT) 4 MG tablet(Started 10/01/2024) Take 1 (one) tablet by mouth every 8 hours as needed for Nausea/Vomiting Allow tablet to dissolve on the tongue Reasons: Nausea and Vomiting Ended Medications* lamoTRIgine (LAMICTAL) 100 MG tablet(Started 05/28/2009) (Discontinued) Take 1 Tab by mouth 2 times daily. 1 refill left * fluoxetine (PROZAC) 20 MG capsule(Started 05/28/2009)(Discontinued) Take 1 Cap by mouth daily. 1 refill left * QUEtiapine XR 24hr (SEROQUEL XR) 150 MG tablet(Started 05/28/2009) (Discontinued) Take 1 Tab by mouth at bedtime. 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 Autistic disorder 01/08/2021 Recurrent major depressive disorder, in full rem ission 01/08/2021 Social phobia 01/08/2021 Immunizations * TDAP (7yrs+)(Given 06/05/2020) Social History Tobacco Use Types Packs/Day Years [...] Comments Blood Pressure 122/89 10/01/2024 7:57 PM SPANISH LITERATURE PROFESSOR Pulse 82 10/01/2024 7:57 PM SPANISH LITERATURE PROFESSOR Temperature 36.8 C (98.2 F) 10/01/2024 7:57 PM SPANISH LITERATURE PROFESSOR Respiratory Rate 16 10/01/2024 7:57 PM SPANISH LITERATURE PROFESSOR Oxygen Saturation 99% 10/01/2024 7:57 PM SPANISH LITERATURE PROFESSOR Inhaled Oxygen Concentration - - Weight 99.8 kg (220 lb) 10/01/2024 5:34 PM SPANISH LITERATURE PROFESSOR Height 182.9 cm (6') 10/01/2024 5:34 PM SPANISH LITERATURE PROFESSOR Body Mass Index 29.84 10/01/2024 5:34 PM SPANISH LITERATURE PROFESSOR Procedures * XR CHEST 1VW PORTABLE(Performed 10/01/2024) Performed for Chest pain, musculoskeletal * SARS-COV-2 (COVID-19) FLU A/B RSV PCR RAPID(Performed 10/01/2024) * LIPASE BLOOD(Performed 10/01/2024) * D-DIMER(Performed 10/01/2024) * COMPREHENSIVE METABOLIC PANEL(Performed 10/01/2024) * CBC W AUTO DIFFERENTIAL(Performed 10/01/2024) * SKIN TEST PPD - POINT OF CARE(Performed 06/07/2020) Performed for PPD screening test * SKIN TEST PPD - POINT OF CARE(Performed 05/25/2020) Performed for Encounter for PPD test * CT ABDOMEN PELVIS WO CONTRAST(Performed 11/02/2009) * URINALYSIS REFLEX TO MICROSCOPIC NO CULTURE(Performed 11/01/2009) * CULTURE URINE(Performed 11/01/2009) * DRUG SCREEN URINE ABUSE INHOUSE(Performed 05/25/2009) Performed for Depressive Disorder NEC * URINALYSIS REFLEX TO MICROSCOPIC NO CULTURE(Performed 05/25/2009) Performed for Depressive Disorder NEC * T4 FREE(Performed 05/24/2009) Performed for Depressive Disorder NEC * TSH(Performed 05/24/2009) Performed for Depressive Disorder NEC * COMPREHENSIVE METABOLIC PANEL(Performed 05/24/2009) Performed for Depressive Disorder NEC * CBC W AUTO DIFFERENTIAL(Performed 05/24/2009) Performed for Depressive Disorder NEC Results * XR CHEST 1VW PORTABLE (10/01/2024 6:30 PM SPANISH LITERATURE PROFESSOR) Anatomical Region Laterality Modality Chest Radiographic Delmis ging Impressions 10/01/2024 7:05 PM SPANISH LITERATURE PROFESSOR 1. No acute findings. INTERPRETING RADIOLOGIST: Eric Jeffers M.D. ELECTRONICALLY SIGNED BY: Eric Jeffers M.D. Log Marker Initials: [facility] Log Marker Time: 19:05 Log Marker Date: 10/01/24 Signed Date/Time: 10/01/24 19:05 UNSIGNED TRANSCRIPTIONS ARE PRELIMINARY REPORTS AND DO NOT REPRESENT MEDICAL OR LEGAL DOCUMENTS. Narrative 10/01/2024 7:05 PM SPANISH LITERATURE PROFESSOR EXAM: FRONTAL VIEW OF THE CHEST. HISTORY: [...] M.D. ELECTRONICALLY SIGNED BY: Eric Jeffers M.D. Log Marker Initials: [facility] Log Mark[employer] Time: 19:05 Log Marker Date: 10/01/24 Signed Date/Time: 10/01/24 19:05 UNSIGNED TRANSCRIPTIONS ARE PRELIMINARY REPORTS AND DO NOT REPRESENT MEDICAL OR LEGAL DOCUMENTS. Shereen Chau MD DIAGNOSTIC IMAGING O RDERABLES * SARS-COV-2 (COVID-19) FLU A/B RSV PCR RAPID (10/01/2024 6:11 PM SPANISH LITERATURE PROFESSOR) COVID-19 PCR Not detected Not detected 10/01/2024 6:50 PM [facility] ([facility]) Influenza A PCR Not detected Not detected 10/01/2024 6:50 PM [facility] ([facility]) Influenza B PCR Not detected Not detected 10/01/2024 6:50 PM [facility] ([facility]) Respiratory Syncytial Virus PCR Not detected Not detected 10/01/2024 6:50 PM [facility] ([facility]) Microbiology SPECIMEN FROM NASOPHARYNGEAL STRUCTURE / Unknown Collection / Unknown 10/01/2024 6:11 PM SPANISH LITERATURE PROFESSOR 10/01/2024 6:11 PM SPANISH LITERATURE PROFESSOR [facility] ([facility]) - 10/01/2024 6:50 PM SPANISH LITERATURE PROFESSOR The Cepheid Xpert Xpress SARS-COV-2 has been [...] the authorization is terminated or revoked sooner. Shereen Chau MD LAB - MICROBIOLOGY O RDERABLES Performing Organization Address City/[facility]/ZIP Co de Phone Number [facility] ([facility]) [address] [place] [address], [facility] [phone] * D-DIMER (10/01/2024 5:51 PM SPANISH LITERATURE PROFESSOR) Pathologist [facility] D-Dimer quantitative 116.00 0.00 - 500.00 ng/mL 10/01/2024 6:38 [address] SPANISH LITERATURE PROFESSOR [facility] ([facility]) Blood BLOOD SPECIMEN / Unknown Venipuncture / Unknown 10/01/2024 5:51 PM SPANISH LITERATURE PROFESSOR 10/01/2024 5:51 PM SPANISH LITERATURE PROFESSOR Shereen Chau MD LAB - COAGULATION OR DERABLES Performing Organization Address [facility]/ZIP Co de Phone Number [facility] ([facility]) [address] [place] [address], [facility] [phone] * (ABNORMAL) CBC W AUTO DIFFERENTIAL (10/01/2024 5:51 PM SPANISH LITERATURE PROFESSOR) Only the most recent of2 resultswithin the time period is included. Pathologist [facility] WBC 10.0 4.6 - 10.2 K/uL 10/01/2024 5:56 [address] SPANISH LITERATURE PROFESSOR [facility] ([facility]) RBC 5.94 4.69 - 6.13 M/uL 10/01/2024 5:56 [address] SPANISH LITERATURE PROFESSOR [facility] ([facility]) Hemoglobin 17.3 14.1 - 18.1 g/dL 10/01/2024 5:56 PM [facility] ([facility]) Hematocrit 49.7 43.5 - 53.7 % 10/01/2024 5:56 PM [facility] ([facility]) MCH 29.1 27.0 - 31.2 pg 10/01/2024 5:56 PM [facility] ([facility]) MCHC 34.8 31.8 - 35.4 g/dL 10/01/2024 5:56 PM [facility] ([facility]) MCV 83.7 80.0 - 97.0 fL 10/01/2024 5:56 PM [facility] ([facility]) RDW 11.9 11.6 - 14.8 % 10/01/2024 5:56 PM [facility] ([facility]) Platelet Count 286 142 - 424 K/uL 10/01/2024 5:56 PM [facility] ([facility]) Neutrophils Absolute 8.8(H) 2.5 - 8.0 K/uL 10/01/2024 5:56 PM [facility] ([facility]) Lymphocytes Absolute 0.3(L) 1.0 - 4.0 K/uL 10/01/2024 5:56 PM [facility] ([facility]) Monocytes Absolute 0.78(H) 0.10 - 0.70 K/uL 10/01/2024 5:56 PM [facility] ([facility]) Eosinophils Absolute 0.05 0.05 - 0.50 K/uL 10/01/2024 5:56 PM [facility] ([facility]) Basophils Absolute 0.04 0.03 - 0.10 K/uL 10/01/2024 5:56 PM [facility] ([facility]) Immature Granulocytes Absolute 0.0 0.0 - 0.3 X(10)3/uL 10/01/2024 5:56 PM [facility] ([facility]) Neutrophils % 87.8(H) 50.0 - 80.0 % 10/01/2024 5:56 PM [facility] ([facility]) Lymphocytes % 3.2(L) 25.0 - 50.0 % 10/01/2024 5:56 PM [facility] ([facility]) Monocytes % 7.80 2.00 - 10.00 % 10/01/2024 5:56 PM [facility] ([facility]) Eosinophils % 0.50 0.00 - 5.00 % 10/01/2024 5:56 PM [facility] ([facility]) Basophils % 0.40 0.00 - 2.00 % 10/01/2024 5:56 PM [facility] ([facility]) Immature Granulocytes % 0.3 0.0 - 0.4 % 10/01/2024 5:56 PM [facility] ([facility]) nRBC 0 /100 WBC's 10/01/2024 5:56 PM [facility] ([facility]) nRBC Absolute 0 10/01/2024 5:56 PM [facility] ([facility]) RDW-SD 36.0 fL 10/01/2024 5:56 PM [facility] ([facility]) Blood BLOOD SPECIMEN / Unknown Venipuncture / Unknown 10/01/2024 5:51 PM SPANISH LITERATURE PROFESSOR 10/01/2024 5:51 PM SPANISH LITERATURE PROFESSOR Narrative [facility] ([facility]) - 10/01/2024 5:56 PM SPANISH LITERATURE PROFESSOR Absolute Granulocyte (Gran #) is the same as the Absolute Neutrophilic Count (ANC) Shereen Chau MD LAB - HEMATOLOGY ORD ERABLES [facility]) [address] [place] [address], [facility] [phone] * (ABNORMAL) COMPREHENSIVE METABOLIC PANEL (10/01/2024 5:51 PM SPANISH LITERATURE PROFESSOR) Only the most recent of2 resultswithin the time period is included. Glucose 119(H) 70 - 105 mg/dL 10/01/2024 6:13 PM [facility] ([facility]) BUN 17 9 - 21 mg/dL 10/01/2024 6:13 PM [facility] ([facility]) Creatinine 1.2 0.7 - 1.3 mg/dL 10/01/2024 6:13 PM [facility] ([facility]) BUN/Creatinine Ratio 14 12 - 20 BN/CR 10/01/2024 6:13 PM [facility] ([facility]) Calcium 9.3 8.4 - 10.2 mg/dL 10/01/2024 6:13 PM [facility] ([facility]) Protein Total 8.2 6.4 - 8.3 g/dL 10/01/2024 6:13 PM [facility] ([facility]) albumin 4.6 3.5 - 5.2 g/dL 10/01/2024 6:13 PM [facility] ([facility]) Globulin Total 3.6 2.5 - 3.7 g/dL 10/01/2024 6:13 PM [facility] ([facility]) Albumin/Globuli n Ratio 1.3 1.1 - 2.2 g/dL 10/01/2024 6:13 PM [facility] ([facility]) Alkaline Phosphatse 68 40 - 150 U/L 10/01/2024 6:13 PM [facility] ([facility]) ALT 45 0 - 55 U/L 10/01/2024 6:13 PM [facility] ([facility]) AST 28 5 - 34 U/L 10/01/2024 6:13 PM [facility] ([facility]) Bilirubin Total 0.70 0.20 - 1.20 md/dL 10/01/2024 6:13 PM [facility] ([facility]) CO2 21(L) 22 - 29 mmol/L 10/01/2024 6:13 PM [facility] ([facility]) Sodium 138 136 - 145 mmol/L 10/01/2024 6:13 PM [facility] ([facility]) Chloride 106 98 - 107 mmol/L 10/01/2024 6:13 PM [facility] ([facility]) Potassium 5.0 3.5 - 5.1 mmol/L 10/01/2024 6:13 PM [facility] ([facility]) GFR 72 mL/min/1.7 3m2 10/01/2024 6:13 PM [facility] ([facility]) Blood BLOOD SPECIMEN / Unknown Venipuncture / Unknown 10/01/2024 5:51 PM SPANISH LITERATURE PROFESSOR 10/01/2024 5:51 PM SPANISH LITERATURE PROFESSOR Shereen Chau MD LAB - CHEMISTRY NASREEN MCINTYRE [facility] ([facility]) [address] [place] [address], [facility] [phone] * LIPASE BLOOD (10/01/2024 5:51 PM SPANISH LITERATURE PROFESSOR) Lipase 31.0 8.0 - 78.0 U/L 10/01/2024 6:13 PM SPANISH LITERATURE PROFESSOR [facility] ([facility]) Blood BLOOD SPECIMEN / Unknown Venipuncture / Unknown 10/01/2024 5:51 PM SPANISH LITERATURE PROFESSOR 10/01/2024 5:51 PM SPANISH LITERATURE PROFESSOR Shereen Chau MD LAB - CHEMISTRY NASREEN MCINTYRE Performing Organization Address City/[facility]/ZIP Co de Phone Number [facility] ([facility]) [address] [place] [address], [facility] [phone] * (ABNORMAL) SKIN TEST PPD - POINT OF CARE (06/07/2020 2:02 PM CDT) Only the most recent of2 resultswithin the time period is included. PPD 0mm(Negativ e) Other MISCELLANEOUS SAMPLE S / Unknown 06/07/2020 2:02 PM CDT Donna Subramanian APRN-SOLID TIRE TUBER MACHINE OPERATOR LAB - POINT OF CA RE ORDERABLES * CT ABDOMEN AND PELVIS NON IV CONTRAST (11/02/2009 12:30 AM SPANISH LITERATURE PROFESSOR) Anatomical Region Laterality Modality Abdomen, Pelvis Other 11/02/2009 12:3 0 AM SPANISH LITERATURE PROFESSOR Narrative 11/02/2009 8:31 AM SPANISH LITERATURE PROFESSOR Exam- CT abdomen and pelvis without contrast Technique- Multislice helical axial images of the abdomen and pelvis without IV contrast Abdomen- Lung bases are clear. The kidneys are normal in size, shape, contour and position. There is no hydronephrosis or perinephric fluid. No renal calculi are detected. No abnormal renal parenchymal density is seen. The ureters are not dilated. With the limitation of non-IV contrast, the liver, spleen, gallbladder, pancreas are grossly normal. A normal air-filled appendix is evident. There is no free air or free fluid. Pelvis- There no ureteric or bladder calculi. The bowel loops are not dilated. The soft tissue planes are present. No free fluid is seen in the pelvis. Impression- No evidence of renal, ureteric or bladder calculi. Reading Radiologist- GLORIA CADE MD Releasing Radiologist- GLORIA CADE MD Released Date Time- 11/02/09 0832 Doll Surgeon- GLORIA CADE MD - PEGGY TOLBERT- PEGGY TOLBERT DAVID CON- RAHEEM- Cassandra ALVARENGA SCP- Procedure Note Gloria Cade MD, MD - 11/02/2009 Exam- CT abdomen and pelvis without contrast Technique- Multislice helical axial images of the abdomen and pelvis without IV contrast Abdomen- Lung bases are clear. The kidneys are normal in size, shape, contour and position. There is no hydronephrosis or perinephric fluid. No renal calculi are detected. No abnormal renal parenchymal density is seen. The ureters are not dilated. With the limitation of non-IV contrast, the liver, spleen, gallbladder, pancreas are grossly normal. A normal air-filled appendix is evident. There is no free air or free fluid. Pelvis- There no ureteric or bladder calculi. The bowel loops are not dilated. The soft tissue planes are present. No free fluid is seen in the pelvis. Impression- No evidence of renal, ureteric or bladder calculi. Reading Radiologist- GLORIA CAED MD Releasing Radiologist- GLORIA CADE MD Released Date Time- 11/02/09 0832 Doll Surgeon- GLORIA CADE MD ADM- PEGGY TOLBERT ATT- DIDI,SHEREEN BARBA- PCP- Cassandra ALVARENGA SCP- Shereen Zamora MD CT ORDERABLES * URINALYSIS ROUTINE AUTO (11/01/2009 11:07 PM SPANISH LITERATURE PROFESSOR) Only the most recent of2 resultswithin the time period is included. Color UA YELLOW [facility] Character [facility] Specific [place] UA 1.010 1.003 - 1.030 [facility] pH UA 6.0 5.0 - 8.0 [facility] Protein UA NEGATIVE Negative [facility] Glucose UA NEGATIVE Negative gm/dl [facility] Ketone UA NEGATIVE Negative [facility] Blood UA 2+ Negative [facility] Bilirubin UA NEGATIVE Negative [facility] Reducing Substances UA NEGATIVE Negative % [facility] WBC UA OCC /HPF [facility] RBC UA 21-25 /HPF [facility] Epithelial Cell UA 1-3 /HPF [facility] Crystals UA TRACE AMORPHOUS [facility] Mucus UA RARE [facility] Bacteria UA RARE [facility] Leukocyte UA NEGATIVE [facility] Nitrite UA NEGATIVE [facility] Urobilinogen UA 0.2 <=1.0 EU/dl [facility] URINE / Unknown 11/01/2009 1 1:07 PM SPANISH LITERATURE PROFESSOR Vish Romero MD LAB - URINALYSIS ORD ERABLES Performing Organization Address [facility]/ZIP Co de Phone Number [facility] * CULTURE URINE (11/01/2009 11:07 PM SPANISH LITERATURE PROFESSOR) Report [facility] Comment: Final - GRAM STAIN No organisms seen CULTURE 1 colony types present at <10,000 CFU/ml No further workup performed URINE SPECIMEN OBTAINED BY CLEAN CATCH PROCEDURE / Unknown 11/01/2009 11:07 PM SPANISH LITERATURE PROFESSOR Vish Romero MD LAB - MICROBIOLOGY O RDERABLES Performing Organization Address [facility] Co de Phone Number [facility] * DRUG SCREEN URINE ABUSE INHOUSE (05/25/2009 8:30 AM CDT) Amphetamines Screen Urine Negative Negative [facility] Barbiturates Screen Urine Negative Negative [facility] Benzodiazepines Screen Urine Negative Negative [facility] Cocaine Screen Urine Negative Negative [facility] Cannabinoids Screen Urine Negative Negative [facility] Opiate Screen Urine Negative Negative [facility] Phencyclidine Screen Urine Negative Negative [facility] Methadone Screen Urine Negative Negative [facility] Legal Disclaimer Urine [facility] Comment: This drug screen is designed for MEDICAL purposes only. It is not to be used for legal purposes including but not limited to workman's comp, police investigations, occupational issues, child custody, etc. Any positive result is only presumptive and must be confirmed with a separate confirmatory test. URINE / Unknown 05/25/2009 8 :30 AM CDT 05/25/2009 9:59 AM CDT Tyler Steiner MD LAB - URINE CHEMISTR Y ORDERABLES Performing Organization Address City/[facility]/ZIP Co de Phone Number [facility] [address] [place] [address] * TSH (05/24/2009 6:35 AM CDT) TSH 2.516 0.35 - 5.50 uIU/ml [facility] BLOOD SPECIMEN / Unknown 05/24/2009 6:35 AM CDT 05/24/2009 7:27 AM CDT Narrative Resulting Agency Comment Performed By [facility] [address] [place] [id number] Tyler Steiner MD LAB - CHEMISTRY NASREEN MCINTYRE Performing Organization Address City/[facility] Co de Phone Number [facility] [address] [place] [address] * T4 FREE (05/24/2009 6:35 AM CDT) T4 Free 1.12 0.89 - 1.76 ng/dl [facility] BLOOD SPECIMEN / Unknown 05/24/2009 6:35 AM CDT 05/24/2009 7:27 AM CDT Narrative Resulting Agency Comment Performed By [facility] [address] [place] [id number] Tyler Steiner MD LAB - CHEMISTRY NASREEN MCINTYRE Performing Organization Address City/[facility]/ZIP Co de Phone Number [facility] [address] [place] [address]
[2024-10-09 10:41] VITALS: BP 148/86; PULSE 91; RESP 19; TEMP 36.4; O2SAT 99
[2024-10-09 11:00] VITALS: PULSE 83
--- OUTSIDE RECORDS SUMMARY | 2024-10-09 11:06 | XMS_ITS | Clinical Summary ---
Author Organization [facility] Address Formerly [facility] [place] [address] Care Team Providers Care Masonry Teacher Name Role Phone Rudy Mcdowell MD Primary Care Provider [phone] Social History Tobacco Use Types Packs/Day Years [...] age to complete this topic Care Teams Masonry Teacher Relationship Specialty Start Date End Date Rudy Mcdowell MD [address] [place] [address] PCP - General 04/07/15
--- OUTSIDE RECORDS SUMMARY | 2024-10-09 11:06 | XMS_ITS | Referral Summary ---
Author Organization [facility] Address [address] [place] [address] Care Team Providers Care Junior Assistant Manager Name Role Phone Unavailable Primary Care Provider Unavailabl e Source Comments [facility],non-owned Affiliates and Associated Physician Practices is amultiple site organization consisting of ambulatory clinics and hospital sitesin [place], [place], [place] and [place]. This disclosure is being madepursuant to the Care Everywhere program and may not contain all information available regarding this patient. Last updated 18.[facility] Encounters Date Type Department Care Team Description 10/01/2024 Travel 10/01/2024 5:32 PM CLASSIFICATION OFFICER - 10/01/2024 7:59 PM CLASSIFICATION OFFICER Emergency [facility] - Emergency Room [address] [place] [address] [phone] Rico Chau MD Viral gastroenteritis (Primary [...] Comments Blood Pressure 122/89 10/01/2024 7:57 PM CLASSIFICATION OFFICER Pulse 82 10/01/2024 7:57 PM CLASSIFICATION OFFICER Temperature 36.8 C (98.2 F) 10/01/2024 7:57 PM CLASSIFICATION OFFICER Respiratory Rate 16 10/01/2024 7:57 PM CLASSIFICATION OFFICER Oxygen Saturation 99% 10/01/2024 7:57 PM CLASSIFICATION OFFICER Inhaled Oxygen Concentration - - Weight 99.8 kg (220 lb) 10/01/2024 5:34 PM CLASSIFICATION OFFICER Height 182.9 cm (6') 10/01/2024 5:34 PM CLASSIFICATION OFFICER Body Mass Index 29.84 10/01/2024 5:34 PM CLASSIFICATION OFFICER Plan of Treatment Not on file Procedures Procedure Name Priority Date/Time Associated Diagnosis Comments XR CHEST 1VW PORTABLE STAT 10/01/2024 6:30 PM CLASSIFICATION OFFICER Chest pain, musculoskeletal SARS-COV-2 (COVID-19) FLU A/B RSV PCR RAPID STAT 10/01/2024 6:11 PM CLASSIFICATION OFFICER LIPASE BLOOD STAT 10/01/2024 5:51 PM CLASSIFICATION OFFICER D-DIMER STAT 10/01/2024 5:51 PM CLASSIFICATION OFFICER COMPREHENSIVE METABOLIC PANEL STAT 10/01/2024 5:51 PM CLASSIFICATION OFFICER CBC W AUTO DIFFERENTIAL STAT 10/01/2024 5:51 PM CLASSIFICATION OFFICER from Last 3 Months Results * XR CHEST 1VW PORTABLE (10/01/2024 6:30 PM CLASSIFICATION OFFICER) Anatomical Region Laterality Modality Chest Radiographic Delmis ging Impressions 10/01/2024 7:05 PM CLASSIFICATION OFFICER 1. No acute findings. INTERPRETING RADIOLOGIST: Eric Jeffers M.D. ELECTRONICALLY SIGNED BY: Eric Jeffers M.D. Dog Control Officer Initials: [facility] Dog Control Officer Time: 19:05 Dog Control Officer Date: 10/01/24 Signed Date/Time: 10/01/24 19:05 UNSIGNED TRANSCRIPTIONS ARE PRELIMINARY REPORTS AND DO NOT REPRESENT MEDICAL OR LEGAL DOCUMENTS. Narrative 10/01/2024 7:05 PM CLASSIFICATION OFFICER EXAM: FRONTAL VIEW OF THE CHEST. HISTORY: [...] M.D. ELECTRONICALLY SIGNED BY: Eric Jeffers M.D. Dog Control Officer Initials: [facility] Dog Control Officer Time: 19:05 Dog Control Officer Date: 10/01/24 Signed Date/Time: 10/01/24 19:05 UNSIGNED TRANSCRIPTIONS ARE PRELIMINARY REPORTS AND DO NOT REPRESENT MEDICAL OR LEGAL DOCUMENTS. Rico Chau MD DIAGNOSTIC IMAGING O RDERABLES * SARS-COV-2 (COVID-19) FLU A/B RSV PCR RAPID (10/01/2024 6:11 PM CLASSIFICATION OFFICER) COVID-19 PCR Not detected Not detected 10/01/2024 6:50 PM CLASSIFICATION OFFICER [facility] ([facility]) Influenza A PCR Not detected Not detected 10/01/2024 6:50 PM CLASSIFICATION OFFICER [facility] ([facility]) Influenza B PCR Not detected Not detected 10/01/2024 6:50 PM CLASSIFICATION OFFICER [facility] ([facility]) Respiratory Syncytial Virus PCR Not detected Not detected 10/01/2024 6:50 PM CLASSIFICATION OFFICER [facility] ([facility]) Microbiology SPECIMEN FROM NASOPHARYNGEAL STRUCTURE / Unknown Collection / Unknown 10/01/2024 6:11 PM CLASSIFICATION OFFICER 10/01/2024 6:11 PM CLASSIFICATION OFFICER [facility] ([facility]) - 10/01/2024 6:50 PM CLASSIFICATION OFFICER [employer] SARS-COV-2 has been authorized by [...] Chau MD LAB - MICROBIOLOGY O RDERABLES [facility] ([facility]) [address] [place] [address], [facility] [phone] * D-DIMER (10/01/2024 5:51 PM CLASSIFICATION OFFICER) D-Dimer quantitative 116.00 0.00 - 500.00 ng/mL 10/01/2024 6:38 PM CLASSIFICATION OFFICER [facility] ([facility]) Blood BLOOD SPECIMEN / Unknown Venipuncture / Unknown 10/01/2024 5:51 PM CLASSIFICATION OFFICER 10/01/2024 5:51 PM CLASSIFICATION OFFICER Rico Chau MD LAB - COAGULATION OR DERABLES [facility] ([facility]) [address] [place] [address], [facility] [phone] * (ABNORMAL) CBC W AUTO DIFFERENTIAL (10/01/2024 5:51 PM CLASSIFICATION OFFICER) Pathologist [facility] WBC 10.0 4.6 - 10.2 K/uL 10/01/2024 5:56 PM [facility] ([facility]) RBC 5.94 4.69 - 6.13 M/uL 10/01/2024 5:56 PM [facility] ([facility]) Hemoglobin 17.3 14.1 - 18.1 g/dL 10/01/2024 5:56 PM [facility] ([facility]) Hematocrit 49.7 43.5 - 53.7 % 10/01/2024 5:56 PM [facility] ([facility]) MCH 29.1 27.0 - 31.2 pg 10/01/2024 5:56 PM [facility] ([facility]) MCHC 34.8 31.8 - 35.4 g/dL 10/01/2024 5:56 PM [facility] ([facility]) MCV 83.7 80.0 - 97.0 fL 10/01/2024 5:56 PM [facility] ([facility]) RDW 11.9 11.6 - 14.8 % 10/01/2024 5:56 PM [facility] ([facility]) Platelet Count 286 142 - 424 K/uL 10/01/2024 5:56 PM [facility] ([facility]) Neutrophils Absolute 8.8(H) 2.5 - 8.0 K/uL 10/01/2024 5:56 PM [facility] ([facility]) Lymphocytes Absolute 0.3(L) 1.0 - 4.0 K/uL 10/01/2024 5:56 PM [facility] ([facility]) Monocytes Absolute 0.78(H) 0.10 - 0.70 K/uL 10/01/2024 5:56 PM [facility] ([facility]) Eosinophils Absolute 0.05 0.05 - 0.50 K/uL 10/01/2024 5:56 PM [facility] ([facility]) Basophils Absolute 0.04 0.03 - 0.10 K/uL 10/01/2024 5:56 PM [facility] ([facility]) Immature Granulocytes Absolute 0.0 0.0 - 0.3 X(10)3/uL 10/01/2024 5:56 PM [facility] ([facility]) Neutrophils % 87.8(H) 50.0 - 80.0 % 10/01/2024 5:56 PM [facility] ([facility]) Lymphocytes % 3.2(L) 25.0 - 50.0 % 10/01/2024 5:56 PM [facility] ([facility]) Monocytes % 7.80 2.00 - 10.00 % 10/01/2024 5:56 PM [facility] ([facility]) Eosinophils % 0.50 0.00 - 5.00 % 10/01/2024 5:56 PM [facility] ([facility]) Basophils % 0.40 0.00 - 2.00 % 10/01/2024 5:56 PM [facility] ([facility]) Immature Granulocytes % 0.3 0.0 - 0.4 % 10/01/2024 5:56 PM [facility] ([facility]) nRBC 0 /100 WBC's 10/01/2024 5:56 PM [facility]) nRBC Absolute 0 10/01/2024 5:56 PM [facility] ([facility]) RDW-SD 36.0 fL 10/01/2024 5:56 PM [facility]) Blood BLOOD SPECIMEN / Unknown Venipuncture / Unknown 10/01/2024 5:51 PM CLASSIFICATION OFFICER 10/01/2024 5:51 PM [facility] ([facility]) - 10/01/2024 5:56 PM CLASSIFICATION OFFICER Absolute Granulocyte (Gran #) is the same as the Absolute Neutrophilic Count (ANC) Rico Chau MD LAB - HEMATOLOGY ORD ERABLES [facility] ([facility]) [address] [place] [address], [facility] [phone] * (ABNORMAL) COMPREHENSIVE METABOLIC PANEL (10/01/2024 5:51 PM CLASSIFICATION OFFICER) Pathologist [facility] Glucose 119(H) 70 - 105 mg/dL 10/01/2024 6:13 PM [facility] ([facility]) BUN 17 9 - 21 mg/dL 10/01/2024 6:13 PM [facility] ([facility]) Creatinine 1.2 0.7 - 1.3 mg/dL 10/01/2024 6:13 PM [facility] ([facility]) BUN/Creatinine Ratio 14 12 - 20 BN/CR 10/01/2024 6:13 PM [facility] ([facility]) Calcium 9.3 8.4 - 10.2 mg/dL 10/01/2024 6:13 PM [facility] ([facility]) Protein Total 8.2 6.4 - 8.3 g/dL 10/01/2024 6:13 PM [facility] ([facility]) albumin 4.6 3.5 - 5.2 g/dL 10/01/2024 6:13 PM [facility] ([facility]) Globulin Total 3.6 2.5 - 3.7 g/dL 10/01/2024 6:13 PM [facility] ([facility]) Albumin/Globuli n Ratio 1.3 1.1 - 2.2 g/dL 10/01/2024 6:13 PM [facility] ([facility]) Alkaline Phosphatse 68 40 - 150 U/L 10/01/2024 6:13 PM [facility] ([facility]) ALT 45 0 - 55 U/L 10/01/2024 6:13 PM [facility] ([facility]) AST 28 5 - 34 U/L 10/01/2024 6:13 PM [facility] ([facility]) Bilirubin Total 0.70 0.20 - 1.20 md/dL 10/01/2024 6:13 PM [facility] ([facility]) CO2 21(L) 22 - 29 mmol/L 10/01/2024 6:13 PM [facility] ([facility]) Sodium 138 136 - 145 mmol/L 10/01/2024 6:13 PM [facility] ([facility]) Chloride 106 98 - 107 mmol/L 10/01/2024 6:13 PM [facility] ([facility]) Potassium 5.0 3.5 - 5.1 mmol/L 10/01/2024 6:13 PM [facility] ([facility]) GFR 72 mL/min/1.7 3m2 10/01/2024 6:13 PM [facility] ([facility]) Blood BLOOD SPECIMEN / Unknown Venipuncture / Unknown 10/01/2024 5:51 PM CLASSIFICATION OFFICER 10/01/2024 5:51 PM CLASSIFICATION OFFICER Rico Chau MD LAB - CHEMISTRY NASREEN MCINTYRE [facility] ([facility]) [address] [place] [address], [facility] [phone] * LIPASE BLOOD (10/01/2024 5:51 PM CLASSIFICATION OFFICER) Lipase 31.0 8.0 - 78.0 U/L 10/01/2024 6:13 PM [facility] ([facility]) Blood BLOOD SPECIMEN / Unknown Venipuncture / Unknown 10/01/2024 5:51 PM CLASSIFICATION OFFICER 10/01/2024 5:51 PM CLASSIFICATION OFFICER Rico Chau MD LAB - CHEMISTRY NASREEN MCINTYRE [facility] ([facility]) [address] [place] [address], [place] [phone] from Last 3 Months Administered Medications Advance Directives * Full Code (Latest Code Status on File) Date Activated Date Inactivated Comments 05/23/2009 5:38 PM 05/28/2009 11:28 PM
--- OUTSIDE RECORDS SUMMARY | 2024-10-09 11:06 | XMS_ITS | Patient Health Summary ---
Author Organization [facility] sougou Address [address] [address] Care Team Providers Care Cfd Engineer Name Role Phone Unavailable Primary Care Provider Unavailabl e Note from [facility],non-owned Affiliates and Associated Physician Practices is amultiple site organization consisting of ambulatory clinics and hospital sitesin [place], [place], [place] and [place]. This disclosure is being madepursuant to the Care Everywhere program and may not contain all information available regarding this patient. Last updated 18.[facility] sougou Allergies No known active allergies Medications * [...] Comments Blood Pressure 122/89 10/01/2024 7:57 PM CLINICAL RESEARCH SPECIALIST Pulse 82 10/01/2024 7:57 PM CLINICAL RESEARCH SPECIALIST Temperature 36.8 C (98.2 F) 10/01/2024 7:57 PM CLINICAL RESEARCH SPECIALIST Respiratory Rate 16 10/01/2024 7:57 PM CLINICAL RESEARCH SPECIALIST Oxygen Saturation 99% 10/01/2024 7:57 PM CLINICAL RESEARCH SPECIALIST Inhaled Oxygen Concentration - - Weight 99.8 kg (220 lb) 10/01/2024 5:34 PM CLINICAL RESEARCH SPECIALIST Height 182.9 cm (6') 10/01/2024 5:34 PM CLINICAL RESEARCH SPECIALIST Body Mass Index 29.84 10/01/2024 5:34 PM CLINICAL RESEARCH SPECIALIST Procedures * XR CHEST 1VW PORTABLE(Performed 10/01/2024) [...] XR CHEST 1VW PORTABLE (10/01/2024 6:30 PM CLINICAL RESEARCH SPECIALIST) Anatomical Region Laterality Modality Chest Radiographic Delmis ging Impressions 10/01/2024 7:05 PM CLINICAL RESEARCH SPECIALIST 1. No acute findings. INTERPRETING RADIOLOGIST: Eric Jeffers M.D. ELECTRONICALLY SIGNED BY: Eric Jeffers M.D. Digital Production Manager Initials: [facility] Digital Production Manager Time: 19:05 Digital Production Manager Date: 10/01/24 Signed Date/Time: 10/01/24 19:05 UNSIGNED TRANSCRIPTIONS ARE PRELIMINARY REPORTS AND DO NOT REPRESENT MEDICAL OR LEGAL DOCUMENTS. Narrative 10/01/2024 7:05 PM CLINICAL RESEARCH SPECIALIST EXAM: FRONTAL VIEW OF THE CHEST. [...] M.D. ELECTRONICALLY SIGNED BY: Eric Jeffers M.D. Digital Production Manager Initials: [facility] Digital Production Manager Time: 19:05 Digital Production Manager Date: 10/01/24 Signed Date/Time: 10/01/24 19:05 UNSIGNED TRANSCRIPTIONS ARE PRELIMINARY REPORTS AND DO NOT REPRESENT MEDICAL OR LEGAL DOCUMENTS. Shereen Chau MD DIAGNOSTIC IMAGING O RDERABLES * SARS-COV-2 (COVID-19) FLU A/B RSV PCR RAPID (10/01/2024 6:11 PM CLINICAL RESEARCH SPECIALIST) COVID-19 PCR Not detected Not detected 10/01/2024 6:50 PM [facility] ([facility]) Influenza A PCR Not detected Not detected 10/01/2024 6:50 PM [facility] ([facility]) Influenza B PCR Not detected Not detected 10/01/2024 6:50 PM [facility] ([facility]) Respiratory Syncytial Virus PCR Not detected Not detected 10/01/2024 6:50 PM [facility] ([facility]) Microbiology SPECIMEN FROM NASOPHARYNGEAL STRUCTURE / Unknown Collection / Unknown 10/01/2024 6:11 PM CLINICAL RESEARCH SPECIALIST 10/01/2024 6:11 PM CLINICAL RESEARCH SPECIALIST [facility] ([facility]) - 10/01/2024 6:50 PM CLINICAL RESEARCH SPECIALIST The Cepheid Xpert Xpress SARS-COV-2 has been [...] - MICROBIOLOGY O RDERABLES Performing Organization Address City/[facility]/ZIP Co de Phone Number [facility] ([facility]) [address] [place] [address], [facility] [phone] * D-DIMER (10/01/2024 5:51 PM CLINICAL RESEARCH SPECIALIST) Pathologist [facility] D-Dimer quantitative 116.00 0.00 - 500.00 ng/mL 10/01/2024 6:38 PM CLINICAL RESEARCH SPECIALIST [facility] ([facility]) Blood BLOOD SPECIMEN / Unknown Venipuncture / Unknown 10/01/2024 5:51 PM CLINICAL RESEARCH SPECIALIST 10/01/2024 5:51 PM CLINICAL RESEARCH SPECIALIST Shereen Chau MD LAB - COAGULATION OR DERABLES Performing Organization Address [facility]/ZIP Co de Phone Number [facility] ([facility]) [address] [place] [address], [facility] [phone] * (ABNORMAL) CBC W AUTO DIFFERENTIAL (10/01/2024 5:51 PM CLINICAL RESEARCH SPECIALIST) Only the most recent of2 resultswithin the time period is included. Pathologist [facility] WBC 10.0 4.6 - 10.2 K/uL 10/01/2024 5:56 PM CLINICAL RESEARCH SPECIALIST [facility] ([facility]) RBC 5.94 4.69 - 6.13 M/uL 10/01/2024 5:56 PM CLINICAL RESEARCH SPECIALIST [facility] ([facility]) Hemoglobin 17.3 14.1 - 18.1 g/dL 10/01/2024 5:56 PM [facility] ([facility]) Hematocrit 49.7 43.5 - 53.7 % 10/01/2024 5:56 PM [facility] ([facility]) MCH 29.1 27.0 - 31.2 pg 10/01/2024 5:56 PM [facility] ([facility]) MCHC 34.8 31.8 - 35.4 g/dL 10/01/2024 5:56 PM [facility] ([facility]) MCV 83.7 80.0 - 97.0 fL 10/01/2024 5:56 PM [facility] ([facility]) RDW 11.9 11.6 - 14.8 % 10/01/2024 5:56 PM [facility] ([facility]) Platelet Count 286 142 - 424 K/uL 10/01/2024 5:56 PM [facility] ([facility]) Neutrophils Absolute 8.8(H) 2.5 - 8.0 K/uL 10/01/2024 5:56 PM [facility] ([facility]) Lymphocytes Absolute 0.3(L) 1.0 - 4.0 K/uL 10/01/2024 5:56 PM [facility] ([facility]) Monocytes Absolute 0.78(H) 0.10 - 0.70 K/uL 10/01/2024 5:56 PM [facility] ([facility]) Eosinophils Absolute 0.05 0.05 - 0.50 K/uL 10/01/2024 5:56 PM [facility] ([facility]) Basophils Absolute 0.04 0.03 - 0.10 K/uL 10/01/2024 5:56 PM [facility] ([facility]) Immature Granulocytes Absolute 0.0 0.0 - 0.3 X(10)3/uL 10/01/2024 5:56 PM [facility] ([facility]) Neutrophils % 87.8(H) 50.0 - 80.0 % 10/01/2024 5:56 PM [facility] ([facility]) Lymphocytes % 3.2(L) 25.0 - 50.0 % 10/01/2024 5:56 PM [facility] ([facility]) Monocytes % 7.80 2.00 - 10.00 % 10/01/2024 5:56 PM [facility] ([facility]) Eosinophils % 0.50 0.00 - 5.00 % 10/01/2024 5:56 PM [facility] ([facility]) Basophils % 0.40 0.00 - 2.00 % 10/01/2024 5:56 PM [facility] ([facility]) Immature Granulocytes % 0.3 0.0 - 0.4 % 10/01/2024 5:56 PM [facility] ([facility]) nRBC 0 /100 WBC's 10/01/2024 5:56 PM [facility] ([facility]) nRBC Absolute 0 10/01/2024 5:56 PM [facility] ([facility]) RDW-SD 36.0 fL 10/01/2024 5:56 PM [facility] ([facility]) Blood BLOOD SPECIMEN / Unknown Venipuncture / Unknown 10/01/2024 5:51 PM CLINICAL RESEARCH SPECIALIST 10/01/2024 5:51 PM CLINICAL RESEARCH SPECIALIST Narrative [facility] ([facility]) - 10/01/2024 5:56 PM CLINICAL RESEARCH SPECIALIST Absolute Granulocyte (Gran #) is the same as the Absolute Neutrophilic Count (ANC) Shereen Chau MD LAB - HEMATOLOGY ORD ERABLES [facility]) [address] [place] [address], [facility] [phone] * (ABNORMAL) COMPREHENSIVE METABOLIC PANEL (10/01/2024 5:51 PM CLINICAL RESEARCH SPECIALIST) Only the most recent of2 resultswithin the time period is included. Glucose 119(H) 70 - 105 mg/dL 10/01/2024 6:13 PM [facility] ([facility]) BUN 17 9 - 21 mg/dL 10/01/2024 6:13 PM [facility] ([facility]) Creatinine 1.2 0.7 - 1.3 mg/dL 10/01/2024 6:13 PM [facility] ([facility]) BUN/Creatinine Ratio 14 12 - 20 BN/CR 10/01/2024 6:13 PM [facility] ([facility]) Calcium 9.3 8.4 - 10.2 mg/dL 10/01/2024 6:13 PM [facility] ([facility]) Protein Total 8.2 6.4 - 8.3 g/dL 10/01/2024 6:13 PM [facility] ([facility]) albumin 4.6 3.5 - 5.2 g/dL 10/01/2024 6:13 PM [facility] ([facility]) Globulin Total 3.6 2.5 - 3.7 g/dL 10/01/2024 6:13 PM [facility] ([facility]) Albumin/Globuli n Ratio 1.3 1.1 - 2.2 g/dL 10/01/2024 6:13 PM [facility] ([facility]) Alkaline Phosphatse 68 40 - 150 U/L 10/01/2024 6:13 PM [facility] ([facility]) ALT 45 0 - 55 U/L 10/01/2024 6:13 PM [facility] ([facility]) AST 28 5 - 34 U/L 10/01/2024 6:13 PM [facility] ([facility]) Bilirubin Total 0.70 0.20 - 1.20 md/dL 10/01/2024 6:13 PM [facility] ([facility]) CO2 21(L) 22 - 29 mmol/L 10/01/2024 6:13 PM [facility] ([facility]) Sodium 138 136 - 145 mmol/L 10/01/2024 6:13 PM [facility] ([facility]) Chloride 106 98 - 107 mmol/L 10/01/2024 6:13 PM [facility] ([facility]) Potassium 5.0 3.5 - 5.1 mmol/L 10/01/2024 6:13 PM [facility] ([facility]) GFR 72 mL/min/1.7 3m2 10/01/2024 6:13 PM [facility] ([facility]) Blood BLOOD SPECIMEN / Unknown Venipuncture / Unknown 10/01/2024 5:51 PM CLINICAL RESEARCH SPECIALIST 10/01/2024 5:51 PM CLINICAL RESEARCH SPECIALIST Shereen Chau MD LAB - CHEMISTRY NASREEN MCINTYRE [facility] ([facility]) [address] [place] [address], [facility] [phone] * LIPASE BLOOD (10/01/2024 5:51 PM CLINICAL RESEARCH SPECIALIST) Lipase 31.0 8.0 - 78.0 U/L 10/01/2024 6:13 PM CLINICAL RESEARCH SPECIALIST [facility] ([facility]) Blood BLOOD SPECIMEN / Unknown Venipuncture / Unknown 10/01/2024 5:51 PM CLINICAL RESEARCH SPECIALIST 10/01/2024 5:51 PM CLINICAL RESEARCH SPECIALIST Shereen Chau MD LAB - CHEMISTRY NASREEN MCINTYRE Performing Organization Address City/[facility]/ZIP Co de Phone Number [facility] ([facility]) [address] [place] [address], [facility] [phone] * (ABNORMAL) SKIN TEST PPD - POINT OF CARE (06/07/2020 2:02 PM CDT) Only the most recent of2 resultswithin the time period is included. PPD 0mm(Negativ e) Other MISCELLANEOUS SAMPLE S / Unknown 06/07/2020 2:02 PM CDT Donna Subramanian APRN-DRYER FEEDER LAB - POINT OF CA RE ORDERABLES * CT ABDOMEN AND PELVIS NON IV CONTRAST (11/02/2009 12:30 AM CLINICAL RESEARCH SPECIALIST) Anatomical Region Laterality Modality Abdomen, Pelvis Other 11/02/2009 12:3 0 AM CLINICAL RESEARCH SPECIALIST Narrative 11/02/2009 8:31 AM CLINICAL RESEARCH SPECIALIST Exam- CT abdomen and pelvis without contrast [...] CADE MD Released Date Time- 11/02/09 0832 Cattle Dealer- GLORIA CADE MD - PEGGY TOLBERT- PEGGY [...] CADE MD Released Date Time- 11/02/09 0832 Cattle Dealer- GLORIA CADE MD ADM- PEGGY TOLBERT ATT- DIDI,SHEREEN BARBA- PCP- Cassandra ALVARENGA SCP- Shereen Zamora MD CT ORDERABLES * URINALYSIS ROUTINE AUTO (11/01/2009 11:07 PM CLINICAL RESEARCH SPECIALIST) Only the most recent of2 resultswithin the time period is included. Color UA YELLOW [facility] Specific Friendship UA 1.010 1.003 - 1.030 [facility] pH UA 6.0 5.0 - 8.0 [facility] Protein UA NEGATIVE Negative [facility] Glucose UA NEGATIVE Negative gm/dl [facility] Ketone UA NEGATIVE Negative [facility] Blood UA 2+ Negative [facility] Bilirubin UA NEGATIVE Negative [facility] Reducing Substances UA NEGATIVE Negative % [facility] WBC UA OCC /HPF [facility] RBC UA 21-25 /HPF [facility] Epithelial Cell UA 1-3 /HPF [facility] Crystals UA TRACE AMORPHOUS [facility] Mucus UA RARE [facility] Bacteria UA RARE [facility] Leukocyte UA NEGATIVE [facility] Nitrite UA NEGATIVE [facility] Urobilinogen UA 0.2 <=1.0 EU/dl [facility] URINE / Unknown 11/01/2009 1 1:07 PM CLINICAL RESEARCH SPECIALIST Vish Romero MD LAB - URINALYSIS ORD ERABLES Performing Organization Address [facility]/ZIP Co de Phone Number [facility] * CULTURE URINE (11/01/2009 11:07 PM CLINICAL RESEARCH SPECIALIST) Report [facility] Comment: Final - GRAM STAIN No organisms seen CULTURE 1 colony types present at <10,000 CFU/ml No further workup performed URINE SPECIMEN OBTAINED BY CLEAN CATCH PROCEDURE / Unknown 11/01/2009 11:07 PM CLINICAL RESEARCH SPECIALIST Vish Romero MD LAB - MICROBIOLOGY O RDERABLES Performing Organization Address [facility] Co de Phone Number [facility] * DRUG SCREEN URINE ABUSE INHOUSE (05/25/2009 [...] URINE CHEMISTR Y ORDERABLES Performing Organization Address City/[facility]/ZIP Co de Phone Number [facility] [address] [place] [address] * TSH (05/24/2009 6:35 AM CDT) TSH 2.516 0.35 - 5.50 uIU/ml [facility] BLOOD SPECIMEN / Unknown 05/24/2009 6:35 AM CDT 05/24/2009 7:27 AM CDT Narrative Resulting Agency Comment Performed By [facility] [address] [place] [id number] Tyler Steiner MD LAB - CHEMISTRY NASREEN MCINTYRE Performing Organization Address City/[facility] Co de Phone Number [facility] [address] [place] [address] * T4 FREE (05/24/2009 6:35 AM CDT) T4 Free 1.12 0.89 - 1.76 ng/dl [facility] BLOOD SPECIMEN / Unknown 05/24/2009 6:35 AM CDT 05/24/2009 7:27 AM CDT Narrative Resulting Agency Comment Performed By [facility] [address] [place] [id number] Tyler Steiner MD LAB - CHEMISTRY NASREEN MCINTYRE Performing Organization Address City/[facility]/ZIP Co de Phone Number [facility] [address] [place] [address]
--- OUTSIDE RECORDS SUMMARY | 2024-10-09 11:06 | XMS_ITS | Continuity of Care Document ---
Author Organization [facility] Address [address] [place] [address] [place] [address] Phone Care Team Providers Care Dairy Truck Driver Name Role Phone Hellen Moore Unavailable Unavailable Procedures Procedure Date Office/outpatient Visit, Est Eye Exam, New Patient Advance Directives Directive Yes / No Effective Date File Name No Information Encounters Encounter Description Practice Location Reason(s) For Visit Diagnoses Date Provider Providers Copied on Encounter Office/outpat ient Visit, Est [facility], [address] [place] [address] [address], [place], [place], [id number], tel:[phone] [facility] No Information 9 Teresa Lobato [address] , [address], [place], [place], [facility], [place]. tel:[phone] [facility], [address] [place] [address] [address], [place], [place], [id number], tel:[phone] [facility] No Information 7 Teresa Macedo. [address] , [address], [place], [place], [facility], [place]. tel:[phone] Family History Family Member Type Diagnosis Age At Onset No Information Payers Payer name Insurance type Covered alliance party ID Authoriza tion(s) No Information Social [...]
--- OUTSIDE RECORDS SUMMARY | 2024-10-09 11:06 | XMS_ITS | Clinical Summary ---
Author Organization [facility] Address [address] [place] [address] Care Team Providers Care Oracle Database Administrator Name Role Phone Unavailable Primary Care Provider Unavailabl e Source Comments [facility],non-owned Affiliates and Associated Physician Practices is amultiple site organization consisting of ambulatory clinics and hospital sitesin [place], [place], [place] and [place]. This disclosure is being madepursuant to the Care Everywhere program and may not contain all information available regarding this patient. Last updated 18.[facility] Allergies No known active allergies Medications * [...] Department Care Team Description 10/01/2024 5:32 PM INTERPERSONAL COMMUNICATIONS PROFESSOR - 10/01/2024 7:59 PM INTERPERSONAL COMMUNICATIONS PROFESSOR Emergency [facility] - Emergency Room [address] [place] [address] [phone] Rico Chau MD Viral gastroenteritis (Primary [...] Comments Blood Pressure 122/89 10/01/2024 7:57 PM INTERPERSONAL COMMUNICATIONS PROFESSOR Pulse 82 10/01/2024 7:57 PM INTERPERSONAL COMMUNICATIONS PROFESSOR Temperature 36.8 C (98.2 F) 10/01/2024 7:57 PM INTERPERSONAL COMMUNICATIONS PROFESSOR Respiratory Rate 16 10/01/2024 7:57 PM INTERPERSONAL COMMUNICATIONS PROFESSOR Oxygen Saturation 99% 10/01/2024 7:57 PM INTERPERSONAL COMMUNICATIONS PROFESSOR Inhaled Oxygen Concentration - - Weight 99.8 kg (220 lb) 10/01/2024 5:34 PM INTERPERSONAL COMMUNICATIONS PROFESSOR Height 182.9 cm (6') 10/01/2024 5:34 PM INTERPERSONAL COMMUNICATIONS PROFESSOR Body Mass Index 29.84 10/01/2024 5:34 PM INTERPERSONAL COMMUNICATIONS PROFESSOR Plan of Treatment Health Maintenance Due Date [...] CHEST 1VW PORTABLE STAT 10/01/2024 6:30 PM INTERPERSONAL COMMUNICATIONS PROFESSOR Chest pain, musculoskeletal SARS-COV-2 (COVID-19) FLU A/B RSV PCR RAPID STAT 10/01/2024 6:11 PM INTERPERSONAL COMMUNICATIONS PROFESSOR LIPASE BLOOD STAT 10/01/2024 5:51 PM INTERPERSONAL COMMUNICATIONS PROFESSOR D-DIMER STAT 10/01/2024 5:51 PM INTERPERSONAL COMMUNICATIONS PROFESSOR COMPREHENSIVE METABOLIC PANEL STAT 10/01/2024 5:51 PM INTERPERSONAL COMMUNICATIONS PROFESSOR CBC W AUTO DIFFERENTIAL STAT 10/01/2024 5:51 PM INTERPERSONAL COMMUNICATIONS PROFESSOR from Last 3 Months Results * XR CHEST 1VW PORTABLE (10/01/2024 6:30 PM INTERPERSONAL COMMUNICATIONS PROFESSOR) Anatomical Region Laterality Modality Chest Radiographic Delmis ging Impressions 10/01/2024 7:05 PM INTERPERSONAL COMMUNICATIONS PROFESSOR 1. No acute findings. INTERPRETING RADIOLOGIST: Eric Jeffers M.D. ELECTRONICALLY SIGNED BY: Eric Jeffers M.D. Shoe Stainer Initials: [facility] Shoe Stainer Time: 19:05 Shoe Stainer Date: 10/01/24 Signed Date/Time: 10/01/24 19:05 UNSIGNED TRANSCRIPTIONS ARE PRELIMINARY REPORTS AND DO NOT REPRESENT MEDICAL OR LEGAL DOCUMENTS. Narrative 10/01/2024 7:05 PM INTERPERSONAL COMMUNICATIONS PROFESSOR EXAM: FRONTAL VIEW OF THE CHEST. [...] M.D. ELECTRONICALLY SIGNED BY: Eric Jeffers M.D. Shoe Stainer Initials: LC Shoe Stainer Time: 19:05 Shoe Stainer Date: 10/01/24 Signed Date/Time: 10/01/24 19:05 UNSIGNED TRANSCRIPTIONS ARE PRELIMINARY REPORTS AND DO NOT REPRESENT MEDICAL OR LEGAL DOCUMENTS. Rico Chau MD DIAGNOSTIC IMAGING O RDERABLES * SARS-COV-2 (COVID-19) FLU A/B RSV PCR RAPID (10/01/2024 6:11 PM INTERPERSONAL COMMUNICATIONS PROFESSOR) COVID-19 PCR Not detected Not detected 10/01/2024 6:50 PM [facility] ([facility]) Influenza A PCR Not detected Not detected 10/01/2024 6:50 PM [facility] ([facility]) Influenza B PCR Not detected Not detected 10/01/2024 6:50 PM [facility] ([facility]) Respiratory Syncytial Virus PCR Not detected Not detected 10/01/2024 6:50 PM [facility] ([facility]) Microbiology SPECIMEN FROM NASOPHARYNGEAL STRUCTURE / Unknown Collection / Unknown 10/01/2024 6:11 PM INTERPERSONAL COMMUNICATIONS PROFESSOR 10/01/2024 6:11 PM INTERPERSONAL COMMUNICATIONS PROFESSOR [facility] ([facility]) - 10/01/2024 6:50 PM INTERPERSONAL COMMUNICATIONS PROFESSOR The Cepheid Xpert Xpress SARS-COV-2 has [...] - MICROBIOLOGY O RDERABLES Performing Organization Address [facility]/ZIP Co de Phone Number [facility] ([facility]) [address] [place] [address], [facility] [phone] * D-DIMER (10/01/2024 5:51 PM INTERPERSONAL COMMUNICATIONS PROFESSOR) Pathologist [facility] D-Dimer quantitative 116.00 0.00 - 500.00 ng/mL 10/01/2024 6:38 PM [facility] ([facility]) Blood BLOOD SPECIMEN / Unknown Venipuncture / Unknown 10/01/2024 5:51 PM INTERPERSONAL COMMUNICATIONS PROFESSOR 10/01/2024 5:51 PM INTERPERSONAL COMMUNICATIONS PROFESSOR Rico Chau MD LAB - COAGULATION OR DERABLES Performing Organization Address [facility]/ZIP Co de Phone Number [facility]) [address] [place] [address], [facility] [phone] * (ABNORMAL) CBC W AUTO DIFFERENTIAL (10/01/2024 5:51 PM INTERPERSONAL COMMUNICATIONS PROFESSOR) Pathologist [facility] WBC 10.0 4.6 - 10.2 K/uL 10/01/2024 5:56 PM [facility] ([facility]) RBC 5.94 4.69 - 6.13 M/uL 10/01/2024 5:56 PM [facility] ([facility]) Hemoglobin 17.3 14.1 - 18.1 g/dL 10/01/2024 5:56 PM [facility] ([facility]) Hematocrit 49.7 43.5 - 53.7 % 10/01/2024 5:56 PM [facility] ([facility]) MCH 29.1 27.0 - 31.2 pg 10/01/2024 5:56 PM [facility] ([facility]) MCHC 34.8 31.8 - 35.4 g/dL 10/01/2024 5:56 PM [facility] ([facility]) MCV 83.7 80.0 - 97.0 fL 10/01/2024 5:56 PM [facility] ([facility]) RDW 11.9 11.6 - 14.8 % 10/01/2024 5:56 PM [facility] ([facility]) Platelet Count 286 142 - 424 K/uL 10/01/2024 5:56 PM [facility] ([facility]) Neutrophils Absolute 8.8(H) 2.5 - 8.0 K/uL 10/01/2024 5:56 PM [facility] ([facility]) Lymphocytes Absolute 0.3(L) 1.0 - 4.0 K/uL 10/01/2024 5:56 PM [facility] ([facility]) Monocytes Absolute 0.78(H) 0.10 - 0.70 K/uL 10/01/2024 5:56 PM [facility] ([facility]) Eosinophils Absolute 0.05 0.05 - 0.50 K/uL 10/01/2024 5:56 PM [facility] ([facility]) Basophils Absolute 0.04 0.03 - 0.10 K/uL 10/01/2024 5:56 PM [facility] ([facility]) Immature Granulocytes Absolute 0.0 0.0 - 0.3 X(10)3/uL 10/01/2024 5:56 PM [facility] ([facility]) Neutrophils % 87.8(H) 50.0 - 80.0 % 10/01/2024 5:56 PM [facility] ([facility]) Lymphocytes % 3.2(L) 25.0 - 50.0 % 10/01/2024 5:56 PM [facility] ([facility]) Monocytes % 7.80 2.00 - 10.00 % 10/01/2024 5:56 PM [facility] ([facility]) Eosinophils % 0.50 0.00 - 5.00 % 10/01/2024 5:56 PM [facility] ([facility]) Basophils % 0.40 0.00 - 2.00 % 10/01/2024 5:56 PM [facility] ([facility]) Immature Granulocytes % 0.3 0.0 - 0.4 % 10/01/2024 5:56 PM [facility] ([facility]) nRBC 0 /100 WBC's 10/01/2024 5:56 PM [facility] ([facility]) nRBC Absolute 0 10/01/2024 5:56 PM [facility] ([facility]) RDW-SD 36.0 fL 10/01/2024 5:56 PM [facility] ([facility]) Blood BLOOD SPECIMEN / Unknown Venipuncture / Unknown 10/01/2024 5:51 PM INTERPERSONAL COMMUNICATIONS PROFESSOR 10/01/2024 5:51 PM INTERPERSONAL COMMUNICATIONS PROFESSOR [facility] ([facility]) - 10/01/2024 5:56 PM INTERPERSONAL COMMUNICATIONS PROFESSOR Absolute Granulocyte (Gran #) is the same as the Absolute Neutrophilic Count (ANC) Rico Chau MD LAB - HEMATOLOGY ORD ERABLES [facility]) [address] [place], [place] [id number], [facility] [phone] * (ABNORMAL) COMPREHENSIVE METABOLIC PANEL (10/01/2024 5:51 PM INTERPERSONAL COMMUNICATIONS PROFESSOR) Glucose 119(H) 70 - 105 mg/dL 10/01/2024 6:13 PM [facility] ([facility]) BUN 17 9 - 21 mg/dL 10/01/2024 6:13 PM [facility] ([facility]) Creatinine 1.2 0.7 - 1.3 mg/dL 10/01/2024 6:13 PM [facility] ([facility]) BUN/Creatinine Ratio 14 12 - 20 BN/CR 10/01/2024 6:13 PM [facility] ([facility]) Calcium 9.3 8.4 - 10.2 mg/dL 10/01/2024 6:13 PM [facility] ([facility]) Protein Total 8.2 6.4 - 8.3 g/dL 10/01/2024 6:13 PM [facility] ([facility]) albumin 4.6 3.5 - 5.2 g/dL 10/01/2024 6:13 PM [facility] ([facility]) Globulin Total 3.6 2.5 - 3.7 g/dL 10/01/2024 6:13 PM [facility] ([facility]) Albumin/Globuli n Ratio 1.3 1.1 - 2.2 g/dL 10/01/2024 6:13 PM [facility] ([facility]) Alkaline Phosphatse 68 40 - 150 U/L 10/01/2024 6:13 PM [facility] ([facility]) ALT 45 0 - 55 U/L 10/01/2024 6:13 PM [facility] ([facility]) AST 28 5 - 34 U/L 10/01/2024 6:13 PM [facility] ([facility]) Bilirubin Total 0.70 0.20 - 1.20 md/dL 10/01/2024 6:13 PM [facility] ([facility]) CO2 21(L) 22 - 29 mmol/L 10/01/2024 6:13 PM [facility] ([facility]) Sodium 138 136 - 145 mmol/L 10/01/2024 6:13 PM [facility] ([facility]) Chloride 106 98 - 107 mmol/L 10/01/2024 6:13 PM [facility] ([facility]) Potassium 5.0 3.5 - 5.1 mmol/L 10/01/2024 6:13 PM [facility] ([facility]) GFR 72 mL/min/1.7 3m2 10/01/2024 6:13 PM [facility] ([facility]) Blood BLOOD SPECIMEN / Unknown Venipuncture / Unknown 10/01/2024 5:51 PM INTERPERSONAL COMMUNICATIONS PROFESSOR 10/01/2024 5:51 PM INTERPERSONAL COMMUNICATIONS PROFESSOR Rico Chau MD LAB - CHEMISTRY NASREEN MCINTYRE [facility] ([facility]) [address] [place] [address], [facility] [phone] * LIPASE BLOOD (10/01/2024 5:51 PM INTERPERSONAL COMMUNICATIONS PROFESSOR) Lipase 31.0 8.0 - 78.0 U/L 10/01/2024 6:13 PM INTERPERSONAL COMMUNICATIONS PROFESSOR [facility] ([facility]) Blood BLOOD SPECIMEN / Unknown Venipuncture / Unknown 10/01/2024 5:51 PM INTERPERSONAL COMMUNICATIONS PROFESSOR 10/01/2024 5:51 PM INTERPERSONAL COMMUNICATIONS PROFESSOR Rico Chau MD LAB - CHEMISTRY NASREEN MCINTYRE [facility] ([facility]) [address] [place] [address], [facility] [phone] from Last 3 Months Advance Directives * Full Code (Latest Code Status on File) Date Activated Date Inactivated Comments 05/23/2009 5:38 PM 05/28/2009 11:28 PM
[2024-10-09 11:16] VITALS: BP 143/98; PULSE 91; RESP 13; O2SAT 99
[2024-10-09 11:23] LABS: Basophils Percent Auto 0.8 % (0.2-1.2); Eosinophils Absolute Auto 0.1 K/mm3 (0-0.3); Eosinophils Percent Auto 2.7 % (0-4.4); Hematocrit 45.8 % (42.0-52.0); Hemoglobin 15.8 g/dL (14.0-18.0); Immature Granulocyte Absolute 0.02 K/mm3 (0.00-0.031); Immature Granulocyte Percent A 0.4 % (0-0.5); Lymphocytes Absolute Auto 1.89 K/mm3 (0.9-3.2); Mean Corpuscular HGB Conc 34.5 g/dl (32-36); Mean Corpuscular Hemoglobin 28.6 pg (26-34); Mean Corpuscular Volume 82.8 fl (80-100); Mean Platelet Volume 8.6 fl (7.4-10.4); Monocytes Absolute Auto 0.4 K/mm3 (0.1-0.6); Monocytes Percent Auto 8.2 % (2.6-8.5); Neutrophils Absolute Auto 2.4 K/mm3 (1.3-6.7); Neutrophils Percent Auto 48.9 % (45.5-73.1); Platelet Count Result 362 k/mm3 (150-375); Red Blood Count 5.53 M/mm3 (4.6-6.20); Red Cell Distribution Width 11.9 % (11.5-14.5); White Blood Count 4.9 K/mm3 (4.5-10.0)
[2024-10-09 11:35] LABS: Prothrombin Time 13.3 Seconds (11.1-14.7)
[2024-10-09 11:36] LABS: Partial Thromboplastin Time 28.7 Seconds (22.3-36.8)
[2024-10-09 11:46] LABS: Alanine Aminotransferase 50 U/L (6-50); Albumin Level 4.7 g/dL (3.5-5.1); Alkaline Phosphatase 56 U/L (38-126); Anion Gap 10 mmol/L (4-12); Aspartate Amino Transferase 30 U/L (17-59); Bilirubin,Total 0.9 mg/dL (0.2-1.3); Blood Urea Nitrogen 10 mg/dL (9-20); Calcium 9.1 mg/dL (8.4-10.2); Carbon Dioxide 29 mmol/L (22-30); Chloride 99 mmol/L (98-107); Estimated CRCL calculation 112 ml/min; Estimated Glomerular Filt Rate > 60; Glucose 98 mg/dL (65-110); Lipase 109 U/L (23-300); Sodium 138 mmol/L (137-145)
[2024-10-09 11:57] LABS: Troponin I < 0.012 ng/mL (0.000-0.034)
--- NOTE | 2024-10-09 11:58 | ED_ITS ---
HPI - General Adult General Chief complaint: Chest Pain Stated complaint: chest pain Time Seen by Provider: 10/09/24 10:58 History of Present Illness HPI narrative: Patient is a 29-year-old male who presents ER with chest pain. It was at the left lateral edge of his sternum anterior chest and lasted for 15 seconds and then went away for 20 seconds and then return for a few more seconds. No trauma. Was just sitting there waiting to play video games. No fevers or chills or sweats. No cough. No exertional dyspnea. No history of hypertension/hyperlipidemia/heart disease/diabetes. No issues at this time. 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 Related Data Home Medications ?Medication ?Instructions ?Recorded ?Confirmed ?Last Taken ?Type guanfacine 1 mg tablet 1 mg PO DAILY 06/18/22 09/17/23 Unknown History methylphenidate HCl 54 mg 54 mg PO DAILY 06/18/22 09/17/23 Unknown History tablet,extended release 24 hr oxcarbazepine 300 mg tablet 300 mg PO DAILY 06/18/22 09/17/23 Unknown History lamotrigine 200 mg tablet 200 mg PO DAILY 07/03/22 09/17/23 Unknown History Allergies Allergy/AdvReac Type Severity Reaction Status Date / Time No Known Allergies Allergy Verified 10/09/24 11:16 Review of Systems 2 Review of Systems: All systems reviewed & are unremarkable except as noted in HPI and below Constitutional: Constitutional: Reports no additional constitutional complaints Cardiovascular: Cardiovascular: Reports no additional cardiovascular complaints Respiratory: Respiratory: Reports no additional respiratory complaints Gastrointestinal: Gastrointestinal: Reports no additional gastrointestinal complaints Neurologic: Reports system reviewed and no additional complaints, except as documented PMFSH Past Medical History Medical History Asthma 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 HEAD: Normocephalic, atraumatic. EYES: PERRL and EOMI. CHEST: Clear to auscultation. No respiratory distress. No reproducible tenderness of the chest wall. HEART: Regular rate and rhythm. Normal peripheral pulses. EXTREMITIES: Normal range of motion. No edema. SKIN: Warm, dry, no rash. NEURO: Alert and oriented x3. PSYCH: Normal mood and affect. Course Course Emergency Course: Resting comfortably. Negative troponin. Normal EKG. Chest x-ray unremarkable. Story is musculoskeletal in nature and is not consistent with cardiac heart disease. Appropriate for discharge home with anti-inflammatory medication. Vital Signs Vital signs: Vital Signs Temperature 97.6 F 10/09/24 10:41 Pulse Rate 91 10/09/24 10:41 Respiratory Rate 19 10/09/24 10:41 Blood Pressure 148/86 H 10/09/24 10:41 Pulse Oximetry 99 10/09/24 10:41 Oxygen Delivery Room Air 10/09/24 10:41 Temperature 97.6 F 10/09/24 10:41 Pulse Rate 91 10/09/24 11:16 Respiratory Rate 13 10/09/24 11:16 Blood Pressure 143/98 H 10/09/24 11:16 Pulse Oximetry 99 10/09/24 11:16 Oxygen Delivery Room Air 10/09/24 11:16 Medical Decision Making Vital Signs Vital Signs: Vital Signs Temperature 97.6 F 10/09/24 10:41 Pulse Rate 91 10/09/24 10:41 Respiratory Rate 19 10/09/24 10:41 Blood Pressure 148/86 H 10/09/24 10:41 Pulse Oximetry 99 10/09/24 10:41 Oxygen Delivery Room Air 10/09/24 10:41 Temperature 97.6 F 10/09/24 10:41 Pulse Rate 91 10/09/24 11:16 Respiratory Rate 13 10/09/24 11:16 Blood Pressure 143/98 H 10/09/24 11:16 Pulse Oximetry 99 10/09/24 11:16 Oxygen Delivery Room Air 10/09/24 11:16 Lab Data 10/09/24 11:14 10/09/24 11:14 Labs: Lab Results 10/09/24 Range/Units 11:14 WBC 4.9 (4.5-10.0) K/mm3 RBC 5.53 (4.6-6.20) M/mm3 Hgb 15.8 (14.0-18.0) g/dL Hct 45.8 (42.0-52.0) % MCV 82.8 (80-100) fl MCH 28.6 (26-34) pg MCHC 34.5 (32-36) g/dl RDW 11.9 (11.5-14.5) % Plt Count 362 (150-375) k/mm3 MPV 8.6 (7.4-10.4) fl Immature Gran % (Auto) 0.4 (0-0.5) % Neut % (Auto) 48.9 (45.5-73.1) % Lymph % (Auto) 39.0 (18.3-44.2) % Mcduffie % (Auto) 8.2 (2.6-8.5) % Eos % (Auto) 2.7 (0-4.4) % Baso % (Auto) 0.8 (0.2-1.2) % Lymph # (Auto) 1.89 (0.9-3.2) K/mm3 Mcduffie # (Auto) 0.4 (0.1-0.6) K/mm3 Eos # (Auto) 0.1 (0-0.3) K/mm3 Baso # (Auto) 0.0 (0.0-0.1) K/mm3 Abs Immat Gran (auto) 0.02 (0.00-0.031) K/mm3 Absolute Neuts (auto) 2.4 (1.3-6.7) K/mm3 Absolute Nucleated RBC 0.000 (0.0-0.012) K/mm3 Nucleated RBC % 0.0 (0.0-0.2) % PT 13.3 (11.1-14.7) Seconds INR 1.0 APTT 28.7 (22.3-36.8) Seconds Sodium 138 (137-145) mmol/L Potassium 4.0 (3.4-5.0) mmol/L Chloride 99 (98-107) mmol/L Carbon Dioxide 29 (22-30) mmol/L Anion Gap 10 (4-12) mmol/L BUN 10 (9-20) mg/dL Creatinine 1.09 (0.7-1.3) mg/dL Estim Creat Clear Calc 112 ml/min Estimated GFR > 60 (59 - ) Glucose 98 (65-110) mg/dL Calcium 9.1 (8.4-10.2) mg/dL Total Bilirubin 0.9 (0.2-1.3) mg/dL AST 30 (17-59) U/L ALT 50 (6-50) U/L Alkaline Phosphatase 56 (38-126) U/L Troponin I < 0.012 (0.000-0.034) ng/mL Total Protein 8.0 (6.3-8.2) g/dL Albumin 4.7 (3.5-5.1) g/dL Lipase 109 (23-300) U/L Imaging Data Radiologist's impression: ITS Impressions Chest X-Ray 10/09/24 11:23 IMPRESSION: No focal infiltrate or effusion. ECG Data EKG #1: ECG completion date: 10/09/24 ECG completion time: 10:51 EKG Interpretation: normal rate (82), sinus rhythm, no ST changes, normal QRS, normal QT and NL axis Discharge Plan Discharge Clinical Impression: Acute chest wall pain, Anxiety Patient Disposition: Home, Self-Care Condition: Stable Instructions: Chest Wall Pain (ED) Additional Instructions: Please return to the emergency department if you develop severe and persistent chest pain, difficulty breathing, dizziness, leg swelling or if you are coughing up blood as these can be signs of a medical emergency. Please call your doctor for a follow up appointment to determine the need for further testing. Patient Language: Cape Verdean Prescriptions: New naproxen 375 mg tablet 375 mg PO BID Qty: 14 0RF No Action methylphenidate HCl 54 mg tablet extended release 24hr 54 mg PO DAILY oxcarbazepine 300 mg tablet 300 mg PO DAILY guanfacine 1 mg tablet 1 mg PO DAILY lamotrigine 200 mg tablet 200 mg PO DAILY methylprednisolone [Medrol (Marshal)] 4 mg tablets,dose pack See Rx Instructions .ROUTE .COMPLEX Qty: 21 0RF Rx Instructions: orally per package directions fluticasone propionate [Flonase Allergy Relief] 50 mcg/actuation spray,suspension 2 spray intranasal DAILY Qty: 50 0RF Rx Instructions: administer into each nostril ibuprofen 800 mg tablet 800 mg PO TID PRN (Reason: pain) Qty: 20 0RF Follow-up/Referrals: Wendi Mondragon MD [Primary Care Provider] - 1 Week
[2024-10-09 12:14] VITALS: BP 133/85; PULSE 83; RESP 18; TEMP 36.5; O2SAT 98
== END 2024-10-09 12:18 | disposition home or self-care (01) ==
PROVIDERS: Emergency Provider Emergency Medicine; PCP Family Medicine
DX: R07.89 Other chest pain (principal); F41.9 Anxiety disorder, unspecified; I45.10 Unspecified right bundle-branch block
CPT/HCPCS: 36415; 71046; 80053; 83690; 84484; 85025; 85610; 85730; 93005; 99284

== ENCOUNTER 2025-07-03 15:06 | Emergency (ER) | payer OTHER, SELFPAY ==
--- OUTSIDE RECORDS SUMMARY | 2009-03-06 10:15 | XMS_ITS | Continuity of Care Document ---
Author Organization [facility] Address [address] [place] [address] [place] [address] Phone Care Team Providers Care Structural Drafter Name Role Phone Hellen Moore Unavailable Unavailable Procedures Procedure Date Office/outpatient Visit, Est Eye Exam, New Patient Advance Directives Directive Yes / No Effective Date File Name No Information Encounters Encounter Description Practice Location Reason(s) For Visit Diagnoses Date Provider Providers Copied on Encounter Office/outpat ient Visit, Est [facility], [address] [place] [address] [address], [place], [place], [id number], tel:[phone] SEC [facility] No Information 9 Teresa Lobato [address] , [address], [place], [place], [facility], [place]. tel:[phone] [facility], [address] [place] [address] [address], [place], [place], [id number], tel:[phone] [facility] No Information 7 Teresa Macedo. [address] , [address], [place], [place], [facility], [place]. tel:[phone] Family History Family Member Type Diagnosis Age At Onset No Information Payers Payer name Insurance type Covered democrat ID Authoriza tion(s) No Information Social History Type Description Quantity Date Captured Comments Sex Male Smoking Status No Information Chief Complaint And Reason For Visit No Information Reason For Referral Reason For Referral No Information History Of Present Illness Encounter Date Complaint History Of Prese nt Illness No Information Functional Status Date Functional Assessmen t No Information Instructions Date Instruction Additional Infor mation No Information Assessments Type Assessment Date No Information Patient Care Teams Name Effective Dates (start - stop) Status Members No Information
--- OUTSIDE RECORDS SUMMARY | 2009-03-06 10:15 | XMS_ITS | Continuity of Care Document ---
Author Organization [facility] Address [address] [place] [address] [place] [address] Phone Care Team Providers Care Production Support Consultant Name Role Phone Hellen Moore Unavailable Unavailable Procedures Procedure Date Office/outpatient Visit, Est Eye Exam, New Patient Advance Directives Directive Yes / No Effective Date File Name No Information Encounters Encounter Description Practice Location Reason(s) For Visit Diagnoses Date Provider Providers Copied on Encounter Office/outpat ient Visit, Est [facility], [address] [place] [address] [address], [place], [place], [id number], tel:[phone] [facility] No Information 9 Teresa [address] , [address], [place], [place], [facility], [place]. tel:[phone] [facility], [address] [place] [address] [address], [place], [place], [id number], tel:[phone] [facility] No Information 7 Teresa Macedo. [address] , [address], [place], [place], [facility], [place]. tel:[phone] Family History Family Member Type Diagnosis Age At Onset No Information Payers Payer name Insurance type Covered libertarian ID Authoriza tion(s) No Information Social History [...]
--- NOTE | 2025-07-03 15:09 | ED.URI ---
HPI - URI/Sore Throat General Chief Complaint: Upper Respiratory Infection Stated Complaint: Flu Like Time Seen by Provider: 07/03/25 15:20 Source: patient Mode of arrival: ambulatory Limitations: no limitations History of Present Illness HPI Narrative: Nilo is a 30-year-old male patient presenting to the clinic today with complaints of sore throat, feeling feverish, nasal congestion, and cough that just started last night. He reports no detectable fever but has felt feverish. His throat has become more red over the course of time since last night. He used a throat lozenge to relieve his symptoms. Rates pain 01/31 currently. Related Data Home Medications ?Medication ?Instructions ?Recorded ?Confirmed ?Last Taken ?Type guanfacine 1 mg tablet 1 mg PO DAILY 06/18/22 09/17/23 Unknown History methylphenidate HCl 54 mg 54 mg PO DAILY 06/18/22 09/17/23 Unknown History tablet,extended release 24 hr oxcarbazepine 300 mg tablet 300 mg PO DAILY 06/18/22 09/17/23 Unknown History lamotrigine 200 mg tablet 200 mg PO DAILY 07/03/22 09/17/23 Unknown History Allergies Allergy/AdvReac Type Severity Reaction Status Date / Time No Known Allergies Allergy Verified 07/03/25 15:09 Review of Systems Review of Systems: Pertinent positives per HPI. Patient denies any rash, headache, visual changes, dizziness, shortness of breath, chest pain, palpitations, nausea, vomiting, diarrhea, constipation, abdominal pain, or any urinary issues. 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 There is no relevant family history pertinent to the patient complaint. Exam Narrative: General: Well-developed, well nourished, in no apparent distress Head: Normocephalic, atraumatic Eyes: Pupils equally round and reactive to light bilaterally, EOM intact, sclera and conjunctive clear, no discharge, lids normal Ears: TMs intact and congested, ear canals clear, no drainage, grossly hearing normal. Nose: Nares patent, clear nasal discharge, no inflammation, no sinus tenderness. Mouth: Oral pharynx red without lesions or masses, good dentition, MMM. Neck: Supple, trachea midline, no enlargement of anterior or posterior cervical nodes, no thyroid masses or goiter palpable. Cardio: Regular rate and rhythm, s1 and s2 normal, no murmur appreciated. Resp: Clear to auscultation bilaterally, no rhonchi, rales, wheezing or rubs Course Course Emergency Course: Portions of this record may have been created with voice recognition software. Level of Care: Express Care Visit Vital Signs Vital signs: Vital Signs Temperature 36.3 C L 07/03/25 15:15 Pulse Rate 82 07/03/25 15:15 Respiratory Rate 16 07/03/25 15:15 Blood Pressure 142/92 H 07/03/25 15:15 Pulse Oximetry 100 07/03/25 15:15 Oxygen Delivery Room Air 07/03/25 15:15 Temperature 36.3 C L 07/03/25 15:15 Pulse Rate 82 07/03/25 15:15 Respiratory Rate 16 07/03/25 15:15 Blood Pressure 142/92 H 07/03/25 15:15 Pulse Oximetry 100 07/03/25 15:15 Oxygen Delivery Room Air 07/03/25 15:15 Vital signs reviewed MDM - URI/Sore Throat MDM Narrative Medical decision making narrative: At the time of visit patient is resting comfortably on the exam table. Patient appears to be nontoxic. Complaints of sore throat, feeling feverish, nasal congestion, and cough that just started last night. He reports no detectable fever but has felt feverish. His throat has become more red over the course of time since last night. He used a throat lozenge to relieve his symptoms. Rates pain 6/10 currently. On exam patient has bilateral TMs congested, clear nasal drainage, oral pharynx red without tonsillar enlargement, no cervical lymphadenopathy, lung sounds clear, heart rates regular rate and rhythm Labs: Strep, COVID, and influenza testing were performed. Strep test was negative we will send for culture. Plan: I suspect patient has URI/pharyngitis. Supportive measures were discussed with the patient and they voiced understanding discharge instructions and agrees to treatment plan. Return precautions reviewed Differential Diagnosis Differential diagnosis: Likely upper respiratory infection, otitis media, sinusitis, viral infection, bronchitis, influenza, pharyngitis and other (COVID) Lab Data Labs: Lab Results 07/03/25 07/03/25 Range/Units 15:29 15:41 POC Influenza A Ag Negative (Negative) POC Influenza B Ag Negative (Negative) POC SARS CoV-2 Ag Negative (Negative) POC Grp A Strep Screen Negative (Negative) Discharge Plan Discharge Clinical Impression: Upper respiratory infection Qualifiers: URI type: unspecified URI Qualified Code(s): J06.9 - Acute upper respiratory infection, unspecified Pharyngitis Qualifiers: Pharyngitis/tonsillitis etiology: unspecified etiology Qualified Code(s): J02.9 - Acute pharyngitis, unspecified Patient Disposition: Home Condition: Stable Instructions: Antibiotic Form, Pharyngitis (ED), Cold Symptoms (ED) Additional Instructions: Strep, COVID, and influenza testing were all negative in the clinic today. We will send strep for culture. If the strep comes back positive we will contact him place you on antibiotics at that time. May take DayQuil/NyQuil for cold/flu symptoms Increase fluids and stay well hydrated May take Tylenol or motrin as directed on bottle for pain/fever May use Flonase 1 spray in each nare daily May take OTC antihistamines such as Zyrtec or Claritin daily as directed on bottle May apply Vicks vapor rub to chest to open sinuses Sinus rinses for congestion Cepacol spray, cough drops, throat lozenges, warm tea with honey/lemon, gargle salt water to soothe throat BRAT diet for diarrhea Clear liquids x 24 hours then advance as tolerated for nausea/vomiting Go to the ED if you develop a worsening in your condition- high fever not controlled by Tylenol or Motrin, dehydration, weakness, lethargy, shortness of breath, or chest pain. Follow up with your PCP in 3-5 days if symptoms persist. Patient Language: Danish Prescriptions: No Action methylphenidate HCl 54 mg tablet extended release 24hr 54 mg PO DAILY oxcarbazepine 300 mg tablet 300 mg PO DAILY guanfacine 1 mg tablet 1 mg PO DAILY lamotrigine 200 mg tablet 200 mg PO DAILY fluticasone propionate [Flonase Allergy Relief] 50 mcg/actuation spray,suspension 2 spray intranasal DAILY Qty: 50 0RF Rx Instructions: administer into each nostril ibuprofen 800 mg tablet 800 mg PO TID PRN (Reason: pain) Qty: 20 0RF Follow-up/Referrals: Wendi Mondragon MD [Primary Care Provider, Family Practice] Stand Alone Forms: Work/School Release IP Time of Disposition: 15:39 Quality NIHSS Nursing Documentation ED NIHSS nursing documentation: reviewed/agree
--- OUTSIDE RECORDS SUMMARY | 2025-07-03 15:09 | XMS_ITS | Clinical Summary ---
Author Organization [facility] Address [address] [place] [id number] Care Team Providers Care Account Auditor Name Role Phone Unavailable Primary Care Provider Unavailabl e Allergies No known active allergies Medications methylphenidate 54 MG TB24 ER tablet Take 1 tablet (54 mg) by mouth every morning Active OXcarbazepine (TRILEPTAL) 300 MG tablet Take 1 tablet (300 mg) by mouth 2 times daily Active lamoTRIgine (LAMICTAL XR) 200 MG TB24 tablet Take 1 tablet (200 mg) by mouth 2 times daily Active guanFACINE (TENEX) 1 MG tablet Take 1 tablet (1 mg) by mouth 2 times daily Active Encounters Date Type Department Care Team Description 05/09/2025 8:42 AM CDT - 05/09/2025 10:21 AM CDT [facility] Emergency Department [address] [place] [id number] Adam Lopez MD Injury of right wrist, initial encounter (Primary Dx) Discharge Disposition: Home from Last 3 Months Social History Tobacco Use Types Packs/Day Years Used Date Smoking Tobacco: Never Smokeless Tobacco: Never Tobacco Cessation:Counseling Given: Not Answered Sex and Gender Information Value Date Recorded Sex Assigned at Male 05/09/2025 8:51 AM CDT Legal Sex Male 8:37 AM CDT Gender Identity Male 05/09/2025 8:51 AM CDT Sexual Orientation Straight 05/09/2025 8: 56 AM CDT Last Filed Vital Signs Vital Sign Reading Time Taken Comments Blood Pressure 132/81 05/09/2025 10:00 AM CDT Pulse 79 05/09/2025 10:00 AM CDT Temperature 36.2 C (97.1 F) 05/09/2025 8:44 AM CDT Respiratory Rate 18 05/09/2025 10:00 AM CDT Oxygen Saturation 98% 05/09/2025 10:00 AM CDT Inhaled Oxygen Concentration - - Weight 108.9 kg (240 lb) 05/09/2025 8:44 AM CDT Height - - Body Mass Index - - Plan of Treatment Health Maintenance Due Date Last Done Comments HIV Screening 1996 Hepatitis C Screening ages 1 8 to 79 once 1996 MMR VACCINES (1 of 1 - Standard series) 02/03/1997 YEARLY WELLNESS EXAM 02/03/1999 DEPRESSION SCREENING 2008 Varicella Vaccine (1 of 2 - 13+ 2-dose series) 02/03/2009 HEPATITIS B VACCINES (1 of 3 - 19+ 3-dose series) 02/03/2015 HPV VACCINES (2 - Male 3-dos e series) 11/10/2022 10/13/2022 Influenza Vaccine 03/24/2025 05/18/2020, 10/02/2017 COVID-19 Immunization ( season) 2025 ADULT TETANUS 07/03/2032 07/03/2022, 06/05/2020 Zoster Vaccine (Recombinant Vaccine) (1 of 2) 02/03/2046 HEPATITIS A VACCINES Aged Out No long er eligible based on patient's age to complete this topic HIB VACCINES Aged Out No longer eligi ble based on patient's age to complete this topic IPV VACCINES Aged Out No longer eligi ble based on patient's age to complete this topic MENINGOCOCCAL VACCINE Aged Out No yoselyn lenard eligible based on patient's age to complete this topic Meningococcal B Vaccine Aged Out No l onger eligible based on patient's age to complete this topic Pneumococcal Vaccine: Peds t o 50 & At-Risk Patients Aged Out No longer eligible based on patient's age to complete this topic ROTAVIRUS VACCINES Aged Out No longer eligible based on patient's age to complete this topic Procedures Procedure Name Priority Date/Time Associated Diagnosis Comments XR WRIST RIGHT COMPLETE 3 + VIEWS STAT 05/09/2025 9:17 AM CDT from Last 3 Months Results * XR WRIST RIGHT COMPLETE 3 + VIEWS (05/09/2025 9:17 AM CDT) Anatomical Region Laterality Modality Wrist Radiographic Delmis ging 05/09/2025 9:10 AM CDT Narrative 05/09/2025 9:53 AM CDT EXAMINATION: Radiographs of the right wrist CLINICAL HISTORY: 30 years Male,Injury 1.5 months from cutting weeds. TECHNIQUE: PA, lateral, oblique and scaphoid of the right wrist. COMPARISON: None. FINDINGS: There is no fracture or dislocation. There is no sub subcutaneous emphysema or retained radiodense foreign body. The mid carpal row is maintained. The radiocarpal joint is within normal limits. The scapholunate joint space is normal Bone density: Is within normal limits IMPRESSION: No acute osseous abnormality. Electronically signed by: Wicho Truong DO 05/09/2025 09:53 AM CDT RP Procedure Note Wicho Truong MD - 05/09/2025 EXAMINATION: Radiographs of the right wrist CLINICAL HISTORY: 30 years Male,Injury 1.5 months from cutting weeds. TECHNIQUE: PA, lateral, oblique and scaphoid of the right wrist. COMPARISON: None. FINDINGS: There is no fracture or dislocation. There is no sub subcutaneous emphysema or retained radiodense foreignbody. The mid carpal row is maintained. The radiocarpal joint is within normal limits. The scapholunate joint space is normal Bone density: Is within normal limits IMPRESSION: No acute osseous abnormality. Electronically signed by: Wicho Truong DO 05/09/2025 09:53 AM CDT RPWorkstation: [id number] Adam Lopez MD [facility] IMG DIAG ORDERABLES Final Re sult from Last 3 Months Insurance [facility]
--- OUTSIDE RECORDS SUMMARY | 2025-07-03 15:09 | XMS_ITS | Clinical Summary ---
Author Organization [facility] Address [facility] [place] [address] Care Team Providers Care Warehouse Selector Name Role Phone Rudy Mcdowell MD Primary Care Provider [phone] Social History Tobacco Use Types Packs/Day Years [...] 3 - 19+ 3-dose series) 02/03/2015 HPV Vaccines (1 - 3-dose SCD M series) 02/03/2023 COVID-19 Vaccine (1 - 2024-2 6 season) 2025 Influenza Adult (#1) 2025 Hepatitis A Vaccines Aged Out No long er eligible based on patient's age to complete this topic Meningococcal B Vaccine Aged Out No l onger eligible based on patient's age to complete this topic Meningococcal Vaccine Aged Out No yoselyn lenard eligible based on patient's age to complete this topic Pneumococcal Vaccine: Pediat rics (0 to 5 Years) and At-Risk Patients (6 to 49 Years) Aged Out No longer eligible b ased on patient's age to complete this topic RSV Immunizations Under 20 Months Aged Out No longer eligible based on patient's age to complete this topic Care Teams Warehouse Selector Relationship Specialty Start Date End Date Rudy Mcdowell MD [address] [place] [address] PCP - General 04/07/15
--- OUTSIDE RECORDS SUMMARY | 2025-07-03 15:09 | XMS_ITS | Clinical Summary ---
Author Organization [facility] Address [address] [place] [address] Care Team Providers Care Fur Tailor Name Role Phone Unavailable Primary Care Provider Unavailabl e Source Comments [facility],non-owned Affiliates and Associated Physician Practices is amultiple site organization consisting of ambulatory clinics and hospital sitesin [place], [place], [place] and [place]. This disclosure is being madepursuant to the Care Everywhere program and may not contain all information available regarding this patient. Last updated 18.[facility] Allergies No known active allergies Medications * This document contains information received from the source organization and may not represent a complete record from that organization. * Be aware that medications may not be up to date on this document. Alwaysverify current medications with the patient. guanfacine (TENEX) 1 MG tablet Take 1 Tab by mouth 2 times daily. 60 1 05/28/2009 Active Methylphenidate HCl (methylphenidat e CR) 54 MG tablet Take 1 (one) tablet by mouth every morning Active OXcarbazepine (Trileptal) 300 MG tablet Take 1 (one) tablet by mouth at bedtime Active lamoTRIgine (LaMICtal) 200 MG tablet Take 1 (one) tablet by mouth 2 times daily 01/25/2024 Active ondansetron, disintegrating, (Zofran ODT) 4 MG tabletIndicatio ns:Nausea and Vomiting Take 1 (one) tablet by mouth every 8 hours as needed for Nausea/Vomiti ng Allow tablet to dissolve on the tongue Reasons: Nausea and Vomiting 12 tablet 10/01/2024 Active Active Problems Problem Noted Date Diagnosed Date [...] symptoms worsen or fail to improve Immunizations Immunization Administration Dates Next Due TDAP (7yrs+) 06/05/2020 [...] at Not on file 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 Gender Identity Not on file Sexual Orientation Not on file Last Filed Vital Signs Vital Sign Reading Time Taken Comments Blood Pressure 122/89 10/01/2024 7:57 PM 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 MODEL MAKER Pulse 82 10/01/2024 7:57 PM 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 MODEL MAKER Temperature 36.8 C (98.2 F) 10/01/2024 7:57 PM 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 MODEL MAKER Respiratory Rate 16 10/01/2024 7:57 PM 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 MODEL MAKER Oxygen Saturation 99% 10/01/2024 7:57 PM 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 MODEL MAKER Inhaled Oxygen Concentration - - Weight 99.8 kg (220 lb) 10/01/2024 5:34 PM 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 MODEL MAKER Height 182.9 cm (6') 10/01/2024 5:34 PM 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 MODEL MAKER Body Mass Index 29.84 10/01/2024 5:34 PM 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 MODEL MAKER Plan of Treatment Health Maintenance Due Date Last Done Comments HIV SCREENING 02/03/2011 HEPATITIS C SCREENING 01/30/2014 HEPATITIS B VACCINE (1 of 3 - 19+ 3-dose series) 02/03/2015 HPV VACCINE (1 - 3-dose SCDM series) 02/03/2023 DEPRESSION SCREENING 08/24/2024 COVID-19 VACCINE ( - season) 2025 06/25/2022, 12/02/2021, 02/08/2021, Additional history exists INFLUENZA VACCINE (#1) 2025 06/25/2022, 2017 DTAP/TDAP/TD VACCINES (2 - Td or Tdap) 06/05/2030 06/05/2020 ZOSTER VACCINE (1 of 2) 02/03/2046 HIB VACCINE Aged Out No longer eligi ble based on patient's age to complete this topic MENINGOCOCCAL (Group B) VACCINE SHARED DECISION-MAKING Aged Out No longer eligible based on patient's age to complete this topic MENINGOCOCCAL GROUPS A/C/Y/W VACCINE Aged Out No longer eligible based on patient's age to complete this topic PNEUMOCOCCAL VACCINE Aged Out No long er eligible based on patient's age to complete this topic Insurance [facility] Advance Directives * Full Code (Latest Code Status on File) Date Activated Date Inactivated Comments 05/23/2009 5:38 PM 05/28/2009 11:28 PM
[2025-07-03 15:15] VITALS: BP 142/92; PULSE 82; RESP 16; TEMP 36.3; O2SAT 100
[2025-07-03 15:30] LABS: EDSTREPNEGPOS1 Negative (Negative)
[2025-07-03 15:45] LABS: EDCOVIDSCREEN Negative (Negative)
[2025-07-03 15:46] LABS: EDINFLUASCREEN Negative (Negative); EDINFLUBSCREEN Negative (Negative)
== END 2025-07-03 15:43 | disposition home or self-care (01) ==
PROVIDERS: Emergency Provider Nurse Practitioner Family; PCP Family Medicine
DX: J06.9 Acute upper respiratory infection, unspecified (principal); J02.9 Acute pharyngitis, unspecified; Z20.822 Contact with and (suspected) exposure to COVID-19; J45.909 Unspecified asthma, uncomplicated
CPT/HCPCS: 87081; 87426; 87804; 87880; 99213; G0463